=== PATIENT | female | born 1950 | race Caucasian/White ===

== ENCOUNTER 2020-02-11 09:02 | Outpatient (REF) | payer MEDICARE, SELFPAY | END 2020-02-11 09:03 | disposition home or self-care (01) | LOC: HO.HMGCLDS 09:02 | PROVIDERS: PCP Internal Medicine; Visit Provider Internal Medicine | DX: Z20.828 Contact with and (suspected) exposure to other viral communicable diseases (principal) | CPT/HCPCS: C9803; U0003 ==

== ENCOUNTER 2020-11-30 08:07 | Outpatient (REF) | payer MEDICARE, SELFPAY ==
[2020-11-30 11:20] LABS: Hematocrit 40.6 % (37-47); Hemoglobin 13.3 g/dl (12.0-16.0); Mean Corpuscular HGB Conc 32.8 g/dl (31.0-35.0); Mean Corpuscular Hemoglobin 31.1 pg (27.0-33.0); Mean Corpuscular Volume 94.9 fL (80-98); Mean Platelet Volume 10.6 fL (9.4-12.3); Platelet Count 242 X10*3/uL (160-400); Red Blood Count 4.28 X10*6/uL (4.20-5.50); Red Cell Distribution Width 12.7 % (11.0-16.0); White Blood Count 6.3 X10*3/uL (4.8-10.8)
[2020-11-30 11:27] LABS: Appearance Urine CLEAR; Color Urine YELLOW; Glucose Urine UA NEG (NEG); Leukocyte Esterase Urine NEG (NEG); Nitrite Urine NEG (NEG); PH 7.5 (5.0-8.0); Urine Blood NEG (NEG); Urine Ketones NEG (NEG); Urine Protein NEG (NEG-TRACE)
[2020-11-30 12:02] LABS: Alanine Aminotransferase 11 U/L (0-31); Albumin Level 4.4 g/dL (3.5-5.0); Alkaline Phosphatase 81 U/L (39-117); Anion Gap 11 (12-20); Aspartate Amino Transferase 16 U/L (5-31); Bilirubin Total 0.5 mg/dL (0.0-1.0); Blood Urea Nitrogen 14 mg/dL (9-16); Calcium 9.4 mg/dL (8.4-10.2); Carbon Dioxide 27 mmol/L (22-29); Chloride 107 mmol/L (96-108); Cholesterol 211 mg/dL; Estimated Glomerular Filt Rate > 60; Glucose Fasting 93 mg/dL (60-99); HDL Cholesterol 61 mg/dL; LDL Cholesterol Calculated 134 mg/dl; Potassium 4.2 mmol/L (3.3-5.1); Sodium 141 mmol/L (135-145); TSH reflex Free T4 1.16 uIU/mL (0.32-4.0); Total Protein 6.8 g/dL (6.5-8.0); Triglycerides 81 mg/dL
[2020-11-30 14:44] LABS: RBC Urine 0 /HPF (0); Squamous Epithelial Cell Urine TRACE /LPF; WBC Urine 0 /HPF (0-4)
== END 2020-11-30 08:08 | disposition home or self-care (01) ==
LOC: HO.HMGCLDS 08:07
PROVIDERS: PCP Internal Medicine; Visit Provider Internal Medicine
DX: Z00.00 Encounter for general adult medical examination without abnormal findings (principal)
CPT/HCPCS: 36415; 80053; 80061; 81001; 84443; 85027

== ENCOUNTER 2021-11-08 10:22 | Outpatient (REF) | payer MEDICARE, SELFPAY ==
[2021-11-08 11:44] LABS: Hematocrit 41.4 % (37.0-47.0); Hemoglobin 13.6 g/dl (12.0-16.0); Mean Corpuscular HGB Conc 32.9 g/dl (31.0-35.0); Mean Corpuscular Hemoglobin 31.2 pg (27.0-33.0); Mean Platelet Volume 10.8 fL (9.4-12.3); Platelet Count 242 X10*3/uL (160-400); Red Blood Count 4.36 X10*6/uL (4.20-5.50); Red Cell Distribution Width 12.9 % (11.0-16.0); White Blood Count 7.1 X10*3/uL (4.8-10.8)
[2021-11-08 12:10] LABS: Alanine Aminotransferase 11 U/L (0-31); Albumin Level 4.4 g/dL (3.5-5.0); Alkaline Phosphatase 79 U/L (39-117); Anion Gap 12 (12-20); Aspartate Amino Transferase 16 U/L (5-31); Bilirubin Total 0.2 mg/dL (0.0-1.0); Blood Urea Nitrogen 16 mg/dL (9-16); Calcium 9.2 mg/dL (8.4-10.2); Carbon Dioxide 28 mmol/L (22-29); Chloride 104 mmol/L (96-108); Cholesterol 227 mg/dL; Estimated Glomerular Filt Rate > 60; Glucose Fasting 91 mg/dL (60-99); HDL Cholesterol 58 mg/dL; LDL Cholesterol Calculated 152 mg/dl; Potassium 4.2 mmol/L (3.3-5.1); Sodium 140 mmol/L (135-145); Total Protein 7.2 g/dL (6.5-8.0); Triglycerides 89 mg/dL
[2021-11-08 12:23] LABS: TSH reflex Free T4 1.26 uIU/mL (0.32-4.0)
== END 2021-11-08 10:23 | disposition home or self-care (01) ==
LOC: HO.HMGCLDS 10:22
PROVIDERS: PCP Internal Medicine; Visit Provider Internal Medicine
DX: Z00.00 Encounter for general adult medical examination without abnormal findings (principal)
CPT/HCPCS: 36415; 80053; 80061; 84443; 85027

== ENCOUNTER 2021-12-27 13:00 | Outpatient (RCR) | payer MEDICARE, SELFPAY ==
--- NOTE | 2021-12-12 19:50 | MHC.PT.EP ---
[facility] [place] Office [place] Office [place] Office [address] [phone] F: [phone] F: [phone] F: [phone] F: [phone] Physical Therapy Plan of Care Date of Evaluation: Date of Surgery: Diagnosis: bakers cyst R knee Assessment: Pt is a 71 y/o female referred PT for eval and treat of R Dubose's cyst who presents with R knee dysfunction resulting in decreased tolerance and ability to perform ambulatory, standing and sitting tasks for duration as well as lifting objects of weight, rolling in bed, and performing LE dressing secondary to decreased hip and core strength, decreased trunk ROM as well as decreased posture, increased tissue tension, pelvic asymmetry and pain. Pt is deemed an appropriate candidate to receive skilled PT in order to address her physical limitations to improve her functional ability. Frequency and Duration: The patient will be seen 2 x/ wk x 4 wks. Short Term Goals: initiate HEP. No longer TTP of posterior R knee. Mcc Goals: I with HEP. Full R knee flexion achieved. R knee flexion MMT improved by at least 1/2 MMT grade; initial: 4/5 and painful. Pt will be able to negotiate 1 fl of stairs with at most a little bit of difficulty; initial: quite a bit of difficulty. Treatment Plan: Modalities to reduce pain, spasms and effusion. Manual therapy to restore motion and function. Therapeutic exercise to improve strength and flexibility. Neuromuscular re-education for posture and balance. Therapeutic activities to return to functional activities of daily living. Electronically signed by: Surjit Hogan PT Please sign and return to therapist. Thank you for your referral.
--- NOTE | 2022-01-02 14:05 | MHC.PT.DC ---
[facility] [place] Office [place] Office [place] Office [address] [place] [phone] F: [phone] F: [phone] F: [phone] F: [phone] Physical Therapy Discharge Report Diagnosis: bakers cyst R knee Date of Surgery: Date of Evaluation: 12/04/21 Date of Discharge: 01/02/22 Treatments to Date: 5 Cancellations to Date: No Shows to Date: Discharge Status: Achieved Goals Improved Function Independent with HEP Discharge Summary: Cancelled her last therapy appointment. her last attended therapy note: Pt reports DC NV likely and PT in agreement as she she is much improved of her Sx and is I with her home program. No adverse effects, No pain with activities, No longer TTP of posterior knee. Electronically signed by: Surjit Hogan PT. Please sign and return to therapist. Thank you for your referral.
== END 2022-01-02 14:05 | disposition home or self-care (01) ==
LOC: HO.PTCHIC 13:00
PROVIDERS: PCP Internal Medicine; Visit Provider Internal Medicine
DX: M71.20 Synovial cyst of popliteal space [Baker], unspecified knee (principal)
CPT/HCPCS: 97110; 97112; 97140; 97161

== ENCOUNTER 2022-02-28 08:03 | Outpatient (REF) | payer MEDICARE, SELFPAY ==
--- NOTE | ~2022-02-28 | XR_ITS ---
EXAMINATION: XR KNEE, BILATERAL XR KNEE, RIGHT CLINICAL INFORMATION: Pain in the right knee COMPARISON: None TECHNIQUE: AP standing view of both knees. Lateral and sunrise views of the right knee. FINDINGS: Right knee: No fracture or subluxation. Compartmental joint spaces are maintained. No joint effusion. The soft tissues appear unremarkable. Left knee: No fracture or malalignment. Mild medial compartment joint space narrowing with marginal osteophytes. XR/XR knee RT 2V IMPRESSION: 1. Normal appearance of the right knee. 2. Mild medial compartment degenerative change of the left knee.
--- NOTE | ~2022-02-28 | XR_ITS ---
EXAMINATION: XR KNEE, BILATERAL XR KNEE, RIGHT CLINICAL INFORMATION: Pain in the right knee COMPARISON: None TECHNIQUE: AP standing view of both knees. Lateral and sunrise views of the right knee. FINDINGS: Right knee: No fracture or subluxation. Compartmental joint spaces are maintained. No joint effusion. The soft tissues appear unremarkable. Left knee: No fracture or malalignment. Mild medial compartment joint space narrowing with marginal osteophytes. XR/XR knee standing BI IMPRESSION: 1. Normal appearance of the right knee. 2. Mild medial compartment degenerative change of the left knee.
== END 2022-02-28 08:04 | disposition home or self-care (01) ==
LOC: HO.HOSX 08:03
PROVIDERS: Visit Provider Physician Assistant
DX: M17.11 Unilateral primary osteoarthritis, right knee (principal); M71.21 Synovial cyst of popliteal space [Baker], right knee; M25.562 Pain in left knee
CPT/HCPCS: 20610; 73560; 73565; 99202; J1040

== ENCOUNTER → 2022-05-28 08:48 | Outpatient (BNVA) | payer MEDICARE, SELFPAY | PROVIDERS: PCP Internal Medicine; Visit Provider Physician Assistant | DX: M17.11 Unilateral primary osteoarthritis, right knee (principal); M71.20 Synovial cyst of popliteal space [Baker], unspecified knee | CPT/HCPCS: 20610; 99212; J1040 ==

== ENCOUNTER 2022-05-28 09:35 | Outpatient (REF) | payer MEDICARE, SELFPAY ==
[2022-05-28 12:14] LABS: Cholesterol 227 mg/dL; HDL Cholesterol 55 mg/dL; LDL Cholesterol Calculated 153 mg/dl; Triglycerides 95 mg/dL
== END 2022-05-28 09:36 | disposition home or self-care (01) ==
LOC: HO.10HDL 09:35
PROVIDERS: Visit Provider Internal Medicine
DX: E78.5 Hyperlipidemia, unspecified (principal)
CPT/HCPCS: 36415; 80061

== ENCOUNTER 2022-08-30 10:08 | Outpatient (REF) | payer MEDICARE, SELFPAY ==
--- NOTE | ~2022-08-30 | MM_ITS ---
EXAMINATION: BONE DENSITOMETRY CLINICAL INDICATION: Asymptomatic menopausal state. COMPARISON: None (current study represents initial baseline exam). TECHNIQUE: Using a Trusight DXA System (software version: 13.1) manufactured by [employer], dual-energy x-ray absorptiometry was performed of the lumbar spine and left hip. The images are of good technical quality. Summary results are attached. FINDINGS: AP SPINE L1-L2 (excluding L3 and L4): The data of L1-L4 has been changed to exclude the L3 and L4 vertebral bodies, because degenerative changes at these levels may cause overestimation of lumbar spine density. BMD 1.069 g/cm2, Z-score 0.4, T-score -0.8, normal. LEFT FEMUR, NECK: BMD 0.868 g/cm2, Z-score 0.2, T-score -1.2, osteopenia. LEFT FEMUR, TOTAL: BMD 0.989 g/cm2, Z-score 1.0, T-score -0.1, normal. IDENTIFIED RISK FACTORS: Early menopause, secondary osteoporosis, family history (parental hip fracture). HISTORY OF FRACTURE: None listed. MEDICATIONS: Calcium supplements or multivitamin, vitamin D. MM/XR DEXA axial skeleton IMPRESSION: 1. DIAGNOSIS: Osteopenia based on the lowest T-score value of -1.2 in the femoral neck applying World Health Organization criteria. 2. 10-YEAR FRACTURE RISK PREDICTION, FRAX: Major osteoporotic fracture (clinical spine, forearm, hip or shoulder) 15.1%. Hip fracture 4.1%. 3. Treatment Recommendations: NOF guidelines recommend consideration for treatment in postmenopausal women and men age 50 and older presenting with the following: -A hip or vertebral (clinical or morphometric) fracture. -T-score less than or equal to -2.5 at the femoral neck or spine after appropriate evaluation to exclude secondary causes. -Low bone mass at the hip or spine and a 10-year fracture probability by FRAX of greater than or equal to 3% for hip fracture or greater than or equal to 20% for major osteoporotic fracture based on the [place] adapted WHO algorithm. 4. Other Recommendations: All treatment decisions require clinical judgment and consideration of individual patient factors, including patient preferences, comorbidities, previous drug use, risk factors not captured in the FRAX model (e.g. frailty, falls, vitamin D deficiency, increased bone turnover, interval significant decline in bone density) and possible under or overestimation of fracture risk by FRAX. Additional medical evaluation for secondary cause of low bone mineral density may be appropriate. FUTURE SCAN RECOMMENDATION: People with diagnosed cases of osteoporosis or at high risk for fracture should have regular bone mineral density tests. For patients eligible for Medicare, routine testing is allowed once every 2 years. The testing frequency can be increased to one year for patients who have rapidly progressing disease, those who are receiving or discontinuing medical therapy to restore bone mass, or have additional risk factors.
== END 2022-08-30 10:09 | disposition home or self-care (01) ==
LOC: HO.MAMMO 10:08
PROVIDERS: PCP Internal Medicine; Visit Provider Internal Medicine
DX: Z13.820 Encounter for screening for osteoporosis (principal); Z78.0 Asymptomatic menopausal state
CPT/HCPCS: 77080

== ENCOUNTER → 2022-09-12 14:56 | Outpatient (BNVA) | payer MEDICARE, SELFPAY | PROVIDERS: PCP Internal Medicine; Visit Provider Physician Assistant | DX: M76.31 Iliotibial band syndrome, right leg (principal); M17.11 Unilateral primary osteoarthritis, right knee | CPT/HCPCS: 99202 ==

== ENCOUNTER 2022-10-04 11:00 | Outpatient (RCR) | payer MEDICARE, SELFPAY ==
--- NOTE | 2022-09-05 10:58 | MHC.PT.EP ---
[facility] [place] Office [place] Office [place] Office [address] [place] [address] [phone] F: [phone] F: [phone] F: [phone] F: [phone] Physical Therapy Plan of Care Date of Evaluation: Date of Surgery: Diagnosis: This is a 72 yo female presenting to skilled PT with a script for pain in the R knee. Assessment: This is a 72 yo female presenting to skilled PT with a script for pain in L shoulder. Patient presented to her PCP on 08/15/22 for a follow-up for persistent right lateral knee pain radiating to the calf area (going for 6 months). She was here for an eval and 5 visits in December of 2021 with improvements at CA but did not complete a full round of PT and has a hard time recalling HEP today. Pain now is located posterior knee still as well as lateral joint line (can radiate to ankle at night) and is describe as achy/dull. The pain is worse when the patient transfers sit<>stand and first steps of ambulation, ascending/descending the stairs, getting off of low surfaces and with sleeping. Patient reports that she has been seeing [facility] and has had 2 cortisone injections (last one was in may). She had relief for a few months with the first injection but no affect after the 2nd. Patient has another follow up appointment with Orthopedics in the end of August. Patient denies knee swelling or injury, clicking, locking, grinding or giving way. Assessment reveals pain that ranges from a 4-7/10. Patient demos decreased lumbar and knee ROM, strength of quads, gluts and back, she is TTP at posterior knee, demos valgus deformity and impaired gait pattern. Based on functional limitations, impaired QOL and pain tolerance patient is a good candidate for skilled PT 2x/wk for 4 wks. Frequency and Duration: The patient will be seen 2x/wk for 4wks Short Term Goals: I in HEP in 2 wks Improve knee flexion by 10 degs actively in 2 wks Demo proper quad set without cues from external sources in 2wks [employer] Operator Goals: Demo equal knee ROM actively in 4wks Tolerate step over step on stairs with single rail and no pain in 4wks Improve subjective function by at least 50% in 4wks Improve LEFs by 10 points in 4wks Demo proper squat posture without cues in 4wks Treatment Plan: Modalities to reduce pain, spasms and effusion. Manual therapy to restore motion and function. Therapeutic exercise to improve strength and flexibility. Neuromuscular re-education for posture and balance. Therapeutic activities to return to functional activities of daily living. Electronically signed by: Ayaka Izaguirre PT Please sign and return to therapist. Thank you for your referral.
--- NOTE | 2022-10-16 10:30 | MHC.PT.DC ---
[facility] [place] Office [place] Office [place] Office [address] [phone] F: [phone] F: [phone] F: [phone] F: [phone] Physical Therapy Discharge Report Diagnosis: This is a 72 yo female presenting to skilled PT with a script for pain in the R knee. Date of Surgery: Date of Evaluation: 09/05/22 Date of Discharge: 10/16/22 Treatments to Date: 3 Cancellations to Date: 0 No Shows to Date: 0 Discharge Status: Achieved Goals Improved Function Independent with HEP Patient Elected to Stop Discharge Summary: Patient came to eval and 2 follow up visits. She called and cancelled remaining visits, LM stating that she felt better and was ready for DC. Electronically signed by: Ayaka Izaguirre PT Please sign and return to therapist. Thank you for your referral.
== END 2022-10-16 10:30 | disposition home or self-care (01) ==
LOC: HO.PTCHIC 11:00
PROVIDERS: PCP Internal Medicine; Visit Provider Internal Medicine
DX: M17.11 Unilateral primary osteoarthritis, right knee (principal)
CPT/HCPCS: 97110; 97140; 97162

== ENCOUNTER 2022-11-20 08:47 | Outpatient (REF) | payer MEDICARE, SELFPAY ==
[2022-11-20 10:23] LABS: MANUAL DIFF FLAG NO
[2022-11-20 10:26] LABS: Basophils Absolute Auto 0.1 X10*3/uL (0.0-0.2); Basophils Percent Auto 0.8 % (0-2); Eosinophils Absolute Auto 0.2 X10*3/uL (0.0-0.4); Eosinophils Percent Auto 3.1 % (0-4); Hematocrit 41.3 % (37.0-47.0); Hemoglobin 13.6 g/dl (12.0-16.0); Imm Gran Abs Auto 0.03 X10*3/uL (0.00-0.03); Imm Gran Pct Auto 0.5 % (0.0-0.4); Lymphocytes Absolute Auto 2.3 X10*3/uL (1.2-4.9); Lymphocytes Percent Auto 35.6 % (20-40); Mean Corpuscular HGB Conc 32.9 g/dl (31.0-35.0); Mean Corpuscular Hemoglobin 31.1 pg (27.0-33.0); Mean Corpuscular Volume 94.3 fL (80.0-98.0); Mean Platelet Volume 10.2 fL (9.4-12.3); Monocytes Absolute Auto 0.5 X10*3/uL (0.1-1.2); Monocytes Percent Auto 8.3 % (2-11); Neutrophils Absolute Auto 3.3 x10*3/uL (2.0-8.3); Neutrophils Percent Auto 51.7 % (45-73); Platelet Count 231 X10*3/uL (160-400); Red Blood Count 4.38 X10*6/uL (4.20-5.50); Red Cell Distribution Width 12.8 % (11.0-16.0); White Blood Count 6.4 X10*3/uL (4.8-10.8)
[2022-11-20 10:44] LABS: Alanine Aminotransferase 9 U/L (0-31); Albumin Level 4.4 g/dL (3.5-5.0); Alkaline Phosphatase 73 U/L (39-117); Anion Gap 10 (12-20); Aspartate Amino Transferase 16 U/L (5-31); Bilirubin Total 0.5 mg/dL (0.0-1.0); Blood Urea Nitrogen 18 mg/dL (9-16); Calcium 9.7 mg/dL (8.4-10.2); Carbon Dioxide 29 mmol/L (22-29); Chloride 104 mmol/L (96-108); Cholesterol 223 mg/dL (<200); Estimated Glomerular Filt Rate 59; Glucose Fasting 99 mg/dL (60-99); HDL Cholesterol 54 mg/dL (>40); LDL Cholesterol Calculated 151 mg/dL (<100); Potassium 4.2 mmol/L (3.3-5.1); Sodium 139 mmol/L (135-145); Total Protein 7.3 g/dL (6.5-8.0); Triglycerides 91 mg/dL (<150)
[2022-11-20 11:00] LABS: TSH reflex Free T4 1.41 uIU/mL (0.32-4.0); Vitamin D 25-OH Total 69.5 ng/mL (>30)
== END 2022-11-20 08:48 | disposition home or self-care (01) ==
LOC: HO.10HDL 08:47
PROVIDERS: Visit Provider Internal Medicine
DX: Z00.00 Encounter for general adult medical examination without abnormal findings (principal); E55.9 Vitamin D deficiency, unspecified; E78.5 Hyperlipidemia, unspecified
CPT/HCPCS: 36415; 80053; 80061; 82306; 84443; 85025

== ENCOUNTER 2022-11-30 07:44 | Outpatient (AMB) | payer MEDICARE, SELFPAY ==
[2022-11-30 07:52] VITALS: BP 122/70; PULSE 70; O2SAT 95; BMI 27.4
--- NOTE | 2022-11-30 07:52 | A.OFFPC_ITS ---
Vital Signs 11/30/22 07:52 Height 5 ft 7 in Weight 175 lb BMI 27.4 BP 122/70 Blood Pressure Location Rt brachial Position Sitting Pulse 70 Pulse Source Pulse Oximeter Pulse Oximetry (%) 95 Intake Visit Reasons: annual PE Intake Note: pt is here for annual exam [employer] Continuous Process Required: No Allergies No Known Allergies Allergy (Verified 11/30/22 07:52) Medication List - Last Reconciled 11/30/22 by Caroline Alaln MD bupropion HCl 300 mg PO DAILY pravastatin 10 mg PO DAILY Tobacco use date assessed: 08/15/22 Last assessed Fall Risk: 11/30/22 Dental Screening Dental Screen Date: 11/30/22 Did you have a dental visit in the last 12 months?: Yes Did you have a dental problem in the last 6 months where you did not have access to dental care?: No Was dental information given to patient?: Patient has dentist HPI annual PE HPI Details Pt presents for PE. Patient complains of persistent right knee pain and stiffness worse when walking. Patient tried physical therapy and had to cortisone injection without significant improvement. [facility] Medical History (Updated 11/30/22 @ 08:51 by Caroline Allan MD) Colon cancer screening Normal Pap smear Annual physical exam Family History Father No problems noted. Mother Stroke Social History Housing: House Patient Tobacco Use Status: Current everyday Tobacco user Cigarettes Per Day: 4 e-Cigarette/Vaping Use: Never Used Current occupational status: retired Cognitive needs: No Hearing needs: No Vision needs: Yes Questionnaire PHQ-9 Over the last 2 weeks, how often have you been bothered by any of the following problems? 1. Little interest or pleasure in doing things: not at all 2. Feeling down, depressed, or hopeless: not at all 3. Trouble falling or staying asleep, or sleeping too much: not at all 4. Feeling tired or having little energy: several days 5. Poor appetite or overeating: not at all 6. Feeling bad about yourself - or that you are a failure or have let yourself or your family down: not at all 7. Trouble concentrating on things, such as reading the newspaper or watching television: not at all 8. Moving or speaking so slowly that other people could have noticed. Or the opposite - being so fidgety or restless that you have been moving around a lot more than usual: not at all 9. Thoughts that you would be better off or of hurting yourself in some way: not at all Total score: 1 Depression Screening Interpretation: Negative 62909 - PHQ-9 Billing: Yes Source: Developed by Drs. Damir Luna, Debra Valdes, Lexx Alanis and colleagues, with an educational aide from [employer]. Thrive Questionnaire Date Thrive assessed: 11/30/22 I am a: Patient What is your living situation today?: I have a steady place to live Within the past 12 months, did the food you bought not last and you didn't have the money to get more?: Never true Within the past 12 months, did you worry whether your food would run out before you got money to buy more?: Never true Do you have trouble paying for medicines?: No Do you have trouble getting transportation to medical appointments?: No Do you have trouble paying your heating and electricity bill?: No Do you have trouble taking care of your child, family member or friend?: No Do you have trouble with day-to-day activities such as bathing, preparing meals, shopping, managing finances, etc.?: No Are you currently unemployed and looking for a job?: No Are you interested in more education?: No Please select the resources that you would like help with: None Currently or been in a relationship where the following occur: no concerns reported AUDIT C Alcohol Use Questionnaire (AUDIT-C) 1. How often do you have a drink containing alcohol?: Monthly or less 2. How many drinks containing alcohol do you have on a typical day when you are drinking?: 1 or 2 3. How often do you have six or more drinks on one occasion?: Never Total Score: 1 BRIGITTE-7 AMB Questionnaire BRIGITTE-7 Date BRIGITTE - 7 assessed: 11/30/22 Feeling nervous, anxious, or on edge: 0 = Not at all Not being able to stop or control worryin = Several days Worrying too much about different things: 1 = Several days Trouble relaxin = Not at all Being so restless that it is hard to sit still: 0 = Not at all Becoming easily annoyed or irritable: 0 = Not at all Feeling afraid as if something awful might happen: 0 = Not at all Total BRIGITTE-7 score (0-4 normal; 5-9 mild; 10-14 moderate; 15-21 severe): 2 Source: Developed by Drs. Damir Luna, Debra Valdes, Lexx Alanis and colleagues, with an educational aide from [employer]. BRIGITTE-7 Assessment Billing BRIGITTE-7 Assessment Tool: BRIGITTE-7 Assessment 33437 Review of Systems Const All systems reviewed & are unremarkable except as noted in HPI and below Reports no additional complaints Eyes Reports no additional complaints ENT Reports no additional complaints Card Reports no additional complaints Resp Reports no additional complaints GI Reports no additional complaints Reports no additional complaints Physical exam (Primary Care) Vital Signs: Last Vital Signs Pulse 70 11/30/22 07:52 BP 122/70 11/30/22 07:52 Pulse Ox 95 11/30/22 07:52 BMI result Body Mass Index 27.4 Tobacco/Smoking Status: Tobacco use Status Tobacco use date assessed 08/15/22 11/30/22 07:53 Patient Tobacco Use Status Current everyday Tobacco 11/30/22 07:53 e-Cigarette/Vaping Use Never Used 11/30/22 07:53 PHQ-9: PHQ-9 Score PHQ-9: Total score 1 11/30/22 08:28 Depression Screening Interpretation: Negative Thrive Assessment: Date of Thrive Assessment Date Thrive assessed 11/30/22 11/30/22 07:58 Currently or been in a relationship where the following occur: no concerns reported Const General: no acute distress HENMT Head: Yes normal to inspection Ears: hearing grossly normal bilaterally Face and sinus: Yes normal facial exam Mouth: Normal oral and palatal mucosa present Throat: Yes posterior oropharynx normal Eyes General: appearance normal, both eyes and all related structures Neck Neck: Yes no lymphadenopathy and Yes supple Resp Effort & Inspection: normal respiratory effort Auscultation: clear to auscultation bilaterally Cardio Rhythm: regular rhythm Heart sounds: S1 normal heart sound present and S2 normal heart sound present GI Inspection: Yes normal to inspection Palpation (GI): Soft to palpation Percussion: Yes normal to percussion Auscultation: normal bowel sounds Extrem Other: Decreased range of motion and the right knee, lateral aspect tenderness, no soft tissue swelling erythema or warmth General: Yes no clubbing, cyanosis or edema Assessment and Plan Assessment & Plan (1) Hyperlipemia: Code(s): E78.5 - Hyperlipidemia, unspecified Plan: start Pravastatin 10 mg and continue low-cholesterol diet check lipid profile in 2 months and follow up afterward (2) Annual physical exam: Comment: Mammogram at [facility] annually. Patient declined colonoscopy. Will check Cologuard Code(s): Z00.00 - Encounter for general adult medical examination without abnormal findings Plan: Well-balanced diet regular physical activity discussed with the patient (3) Right knee meniscal tear: Code(s): S83.206A - Unspecified tear of unspecified meniscus, current injury, right knee, initial encounter Plan: Obtain MRI of right knee to evaluate for meniscus tear (4) Dysplastic nevi: Code(s): D23.9 - Other benign neoplasm of skin, unspecified Plan: Referred to dermatology Orders: Orders Comprehensive [place]. Panel Fast 2 Months E78.5 - Hyperlipidemia, unspecified, Z00.00 - Encounter for general adult medical examination without abnormal findings Lipid Panel 2 Months E78.5 - Hyperlipidemia, unspecified, Z00.00 - Encounter for general adult medical examination without abnormal findings MR knee RT wo con Today S83.206A - Unspecified tear of unspecified meniscus, current injury, right knee, initial encounter Referrals Cologuard Test Z12.11 - Encounter for screening for malignant neoplasm of colon, Z12.12 - Encounter for screening for malignant neoplasm of rectum Dermatology Referral D23.9 - Other benign neoplasm of skin, unspecified Medications: New pravastatin 10 mg PO DAILY 90 tabs 0RF pravastatin 10 mg PO DAILY 90 tabs 0RF Refilled bupropion HCl 300 mg PO DAILY 90 tabs 3RF Coding Level of Care Code Est Pt Prev Care >65y(64899) Diagnoses Hyperlipemia E78.5 Annual physical exam Z00.00 Right knee meniscal tear S83.206A Dysplastic nevi D23.9 Additional Codes BRIGITTE-7 Assessment Billing - BRIGITTE-7 Assessment Tool: BRIGITTE-7 Assessment [id number] ([id number])
== END 2022-11-30 08:52 | disposition home or self-care (01) ==
PROVIDERS: Visit Provider Internal Medicine
DX: E78.5 Hyperlipidemia, unspecified (principal); Z00.00 Encounter for general adult medical examination without abnormal findings; S83.206A Unspecified tear of unspecified meniscus, current injury, right knee, initial encounter; D23.9 Other benign neoplasm of skin, unspecified
CPT/HCPCS: 99397

== ENCOUNTER 2023-01-29 08:19 | Outpatient (REF) | payer MEDICARE, SELFPAY ==
[2023-01-29 11:07] LABS: Alanine Aminotransferase 12 U/L (0-31); Albumin Level 4.2 g/dL (3.5-5.0); Alkaline Phosphatase 77 U/L (39-117); Anion Gap 11 (12-20); Aspartate Amino Transferase 20 U/L (5-31); Bilirubin Total 0.3 mg/dL (0.0-1.0); Blood Urea Nitrogen 14 mg/dL (9-16); Calcium 9.3 mg/dL (8.4-10.2); Carbon Dioxide 28 mmol/L (22-29); Chloride 106 mmol/L (96-108); Cholesterol 186 mg/dL (<200); Estimated Glomerular Filt Rate > 60; Glucose Fasting 94 mg/dL (60-99); HDL Cholesterol 51 mg/dL (>40); LDL Cholesterol Calculated 121 mg/dL (<100); Potassium 4.2 mmol/L (3.3-5.1); Sodium 141 mmol/L (135-145); Total Protein 6.9 g/dL (6.5-8.0); Triglycerides 70 mg/dL (<150)
== END 2023-01-29 08:20 | disposition home or self-care (01) ==
LOC: HO.10HDL 08:19
PROVIDERS: Visit Provider Internal Medicine
DX: Z00.00 Encounter for general adult medical examination without abnormal findings (principal); E78.5 Hyperlipidemia, unspecified
CPT/HCPCS: 36415; 80053; 80061

== ENCOUNTER 2023-02-06 08:33 | Outpatient (AMB) | payer MEDICARE, SELFPAY ==
--- NOTE | 2023-02-06 08:35 | MHC.PC.OV ---
Vital Signs 02/06/23 08:38 Height 5 ft 7 in Weight 176 lb BMI 27.6 BP 112/76 Blood Pressure Location Lt brachial Position Sitting Pulse 80 Pulse Source Pulse Oximeter Pulse Oximetry (%) 98 Oxygen Delivery Method Room Air Intake Visit Reasons: 2 Month Follow Up (Hyperlipidemia) Allergies No Known Allergies Allergy (Verified 02/06/23 08:38) Medication List - Last Reconciled 02/06/23 by Caroline Allan MD bupropion HCl 300 mg PO DAILY pravastatin 10 mg PO DAILY Tobacco use date assessed: 08/15/22 Fall risk assessment: No Falls in past year Last assessed Fall Risk: 02/06/23 HPI 2 Month Follow Up (Hyperlipidemia) HPI Details Pt presents for hyperlipid and anxiety. Pt c/o postnasal drip on and off for 2 weeks. Patient denies fever chills of facial pain nasal congestion. [facility] Medical History (Updated 02/06/23 @ 09:21 by Caroline Allan MD) Colon cancer screening Normal Pap smear Annual physical exam Family History Father No problems noted. Mother Stroke Social History Housing: House Patient Tobacco Use Status: Current everyday Tobacco user Cigarettes Per Day: 4 e-Cigarette/Vaping Use: Never Used Current occupational status: retired Cognitive needs: No Hearing needs: No Vision needs: Yes Questionnaire Thrive Questionnaire Date Thrive assessed: 11/30/22 BRIGITTE-7 AMB Questionnaire BRIGITTE-7 Date BRIGITTE - 7 assessed: 11/30/22 Source: Developed by Drs. Damir Luna, Debra Valdes, Lexx Alanis and colleagues, with an educational aide from [employer]. Review of Systems Const All systems reviewed & are unremarkable except as noted in HPI and below Reports no additional complaints Eyes Reports no additional complaints ENT Reports no additional complaints Card Reports no additional complaints Resp Reports no additional complaints GI Reports no additional complaints Physical exam (Primary Care) Vital Signs: Last Vital Signs Pulse 80 02/06/23 08:38 BP 112/76 02/06/23 08:38 Pulse Ox 98 02/06/23 08:38 Oxygen Delivery Method Room Air 02/06/23 08:38 BMI result Body Mass Index 27.6 Tobacco/Smoking Status: Tobacco use Status Tobacco use date assessed 08/15/22 02/06/23 08:37 Patient Tobacco Use Status Current everyday Tobacco 02/06/23 08:37 e-Cigarette/Vaping Use Never Used 02/06/23 08:37 Thrive Assessment: Date of Thrive Assessment Date Thrive assessed 11/30/22 02/06/23 08:37 Const General: no acute distress HENMT Head: Yes normal to inspection Ears: hearing grossly normal bilaterally Face and sinus: Yes normal facial exam Mouth: Normal oral and palatal mucosa present Throat: Yes postnasal drainage Eyes General: appearance normal, both eyes and all related structures Neck Neck: Yes no lymphadenopathy and Yes supple Resp Effort & Inspection: normal respiratory effort Auscultation: clear to auscultation bilaterally Cardio Rhythm: regular rhythm Heart sounds: S1 normal heart sound present and S2 normal heart sound present GI Inspection: Yes normal to inspection Assessment and Plan Assessment & Plan (1) Hyperlipemia: Code(s): E78.5 - Hyperlipidemia, unspecified Plan: Continue pravastatin follow-up in 6 months with a fasting labs before (2) Postnasal drip: Code(s): R09.82 - Postnasal drip Plan: Patient will try Flonase nasal spray (3) Anxiety: Code(s): F41.9 - Anxiety disorder, unspecified Plan: Continue bupropion Orders: Orders Comprehensive [place]. Panel Fast 6 Months E78.5 - Hyperlipidemia, unspecified, F41.9 - Anxiety disorder, unspecified, R09.82 - Postnasal drip Complete Blood Count Auto Diff 6 Months E78.5 - Hyperlipidemia, unspecified, F41.9 - Anxiety disorder, unspecified, R09.82 - Postnasal drip Lipid Panel 6 Months E78.5 - Hyperlipidemia, unspecified, F41.9 - Anxiety disorder, unspecified, R09.82 - Postnasal drip Medications: Refilled pravastatin 10 mg PO DAILY 90 tabs 3RF Coding Level of Care Code Est Pt Level 4 (94015) Diagnoses Hyperlipemia E78.5 Postnasal drip R09.82 Anxiety F41.9
[2023-02-06 08:38] VITALS: BP 112/76; PULSE 80; O2SAT 98; BMI 27.6
== END 2023-02-06 09:26 | disposition home or self-care (01) ==
PROVIDERS: PCP Internal Medicine; Visit Provider Internal Medicine
DX: E78.5 Hyperlipidemia, unspecified (principal); R09.82 Postnasal drip; F41.9 Anxiety disorder, unspecified
CPT/HCPCS: 99214

== ENCOUNTER 2023-02-26 10:47 | Outpatient (REF) | payer MEDICARE, SELFPAY ==
--- NOTE | ~2023-02-26 | XR_ITS ---
EXAMINATION: XR CHEST 2 VIEW CLINICAL INFORMATION: Cough COMPARISON: None TECHNIQUE: PA and lateral views of the chest obtained. FINDINGS: The lungs are clear. There are no pleural effusions. The cardiomediastinal silhouette is normal. XR/XR chest 2V IMPRESSION: No acute cardiopulmonary disease.
== END 2023-02-26 10:48 | disposition home or self-care (01) ==
LOC: HO.HMGCX 10:47
PROVIDERS: PCP Internal Medicine; Visit Provider Internal Medicine
DX: R05.9 Cough, unspecified (principal)
CPT/HCPCS: 71046

== ENCOUNTER 2023-07-17 10:14 | Outpatient (REF) | payer MEDICARE, SELFPAY ==
--- NOTE | ~2023-07-17 | XR_ITS ---
EXAMINATION: XR KNEE, RIGHT CLINICAL INFORMATION: Unilateral primary osteoarthritis right knee. COMPARISON: 02/28/2022. TECHNIQUE: AP standing view of bilateral knees. [place] and lateral views of the right knee. of the right knee. FINDINGS: LEFT KNEE: Single AP standing view of the left knee demonstrates [id number] narrowing of the medial compartment with small medial marginal osteophytes. RIGHT KNEE: Moderate joint effusion. Tiny tricompartmental osteophytes. Mild narrowing of the lateral compartment. Scattered soft tissue calcifications are likely vascular. XR/XR knee RT 3V IMPRESSION: Mild degenerative changes in the bilateral knees.
== END 2023-07-17 10:15 | disposition home or self-care (01) ==
LOC: HO.HOSX 10:14
PROVIDERS: Visit Provider Physician Assistant
DX: M17.11 Unilateral primary osteoarthritis, right knee (principal)
CPT/HCPCS: 20610; 73562; 99212; J1010

== ENCOUNTER 2023-07-17 11:09 | Outpatient (AMB) | payer MEDICARE, SELFPAY ==
--- NOTE | 2023-07-17 11:35 | MHC.OFFVIS ---
Vital Signs 07/17/23 11:37 Height 5 ft 7 in Weight 176 lb BMI 27.6 Intake Visit Reasons: ov- RT knee pain/ OA Intake Note: Zenia a 72 year old female who presents today for a follow up of right knee pain, last injection 05/29/23. Patient reports that PT provided her with little relief. States she continues to do at home exercises that consists of walking and yoga. States her most discomfort comes with flexion and extension. She would like to repeat injection today. Allergies No Known Allergies Allergy (Verified 07/17/23 11:40) HPI HPI ov- RT knee pain/ OA: Details: 73-year-old female who returns to the office today for a follow-up of right knee pain. She states she has improvement in her pain however she does experiences discomfort in her knee which comes with flexion and extension. She had also attended physical therapy with mild relief. She continues to work on home exercises which consists of walking and yoga. She had her last injection on 05/29/23 which provided her relief. [facility] Medical History (Updated 02/25/23 @ 15:52 by Caroline Allan MD) Colon cancer screening Normal Pap smear Annual physical exam Family History Father No problems noted. Mother Stroke Social History Housing: House Patient Tobacco Use Status: Current everyday Tobacco user Cigarettes Per Day: 4 e-Cigarette/Vaping Use: Never Used Current occupational status: retired Cognitive needs: No Hearing needs: No Vision needs: Yes Review of Systems Const All systems reviewed & are unremarkable except as noted in HPI and below Physical Exam Vital Signs: BMI result Body Mass Index 27.6 Const General: cooperative and no acute distress Orientation/consciousness: patient oriented x3 Resp Effort & Inspection: normal respiratory effort and able to speak in complete sentences Cardio Peripheral pulses: Peripheral pulses 2+ throughout Neuro General: patient oriented x3 Extrem Other: Right knee: Skin intact, no erythema or joint effusion. No specific Tenderness along the medial or lateral joint line. ROM full with crepitus. Negative steinmans. No ligamentous laxity. NVI. Office Procedures Joint Injection/Drain Joint Injection/Drain Primary Site: right knee Prep: site was prepped using aseptic technique, ethochloride spray was applied and injection warnings given Injected: 80 mg of, DepoMedrol, with 8 mL of, 1% plain lidocaine and in the joint Approach Used: anterolateral Procedure: The patient tolerated the procedure well and there was some relief with the local anesthesia Coding 53931 - Glenohumeral/Tronchanteric Bursa/Intraarticular Procedure code (CPT) selection complete Assessment & Plan Assessment & Plan (1) Osteoarthritis of right knee: Code(s): M17.11 - Unilateral primary osteoarthritis, right knee Category: Medical Plan We discussed options today which include steroid injection. They did consent to move forward with the right knee injection, which was tolerated well. I recommended rest, ice and elevation and OTC anti-inflammatories PRN for discomfort. If symptoms persist or worsens over the next 6-8 weeks, patient will contact the office, otherwise follow-up as needed. Orders: Orders XR knee RT 3V Today M17.11 - Unilateral primary osteoarthritis, right knee Patient Instructions: Scribed for Shashi Shook PA-C, by Nick Griggs director of medical staff services, on 07/17/2023 at 11:30 AM BAILEY. Shashi Oliver PA-C, have personally reviewed and agree with the information entered by the scribe. Coding Level of Care Code Est Pt Level 3 (90089) Diagnoses Osteoarthritis of right knee M17.11 CPT Codes Coding - Joint 7: 56803 - Glenohumeral/Tronchanteric Bursa/Intraarticular ([id number])
[2023-07-17 11:37] VITALS: BMI 27.6
== END 2023-07-17 11:53 | disposition home or self-care (01) ==
PROVIDERS: PCP Internal Medicine; Visit Provider Physician Assistant
DX: M17.11 Unilateral primary osteoarthritis, right knee (principal)
CPT/HCPCS: 20610; 99213

== ENCOUNTER 2023-07-31 08:31 | Outpatient (REF) | payer MEDICARE, SELFPAY ==
[2023-07-31 14:17] LABS: MANUAL DIFF FLAG NO
[2023-07-31 14:29] LABS: Basophils Absolute Auto 0.1 X10*3/uL (0.0-0.2); Eosinophils Absolute Auto 0.1 X10*3/uL (0.0-0.4); Hematocrit 42.7 % (37.0-47.0); Hemoglobin 14.1 g/dl (12.0-16.0); Imm Gran Abs Auto 0.03 X10*3/uL (0.00-0.03); Imm Gran Pct Auto 0.3 % (0.0-0.4); Lymphocytes Absolute Auto 2.3 X10*3/uL (1.2-4.9); Mean Corpuscular Hemoglobin 31.5 pg (27.0-33.0); Mean Corpuscular Volume 95.5 fL (80.0-98.0); Mean Platelet Volume 10.8 fL (9.4-12.3); Monocytes Absolute Auto 0.5 X10*3/uL (0.1-1.2); Monocytes Percent Auto 5.5 % (2-11); Neutrophils Absolute Auto 6.4 x10*3/uL (2.0-8.3); Neutrophils Percent Auto 68.2 % (45-73); Platelet Count 237 X10*3/uL (160-400); Red Blood Count 4.47 X10*6/uL (4.20-5.50); Red Cell Distribution Width 13.2 % (11.0-16.0); White Blood Count 9.4 X10*3/uL (4.8-10.8)
[2023-07-31 15:08] LABS: Alanine Aminotransferase 12 U/L (0-31); Albumin Level 4.6 g/dL (3.5-5.0); Alkaline Phosphatase 73 U/L (39-117); Anion Gap 16 (12-20); Aspartate Amino Transferase 19 U/L (5-31); Bilirubin Total 0.6 mg/dL (0.0-1.0); Blood Urea Nitrogen 19 mg/dL (9-16); Calcium 10.3 mg/dL (8.4-10.2); Carbon Dioxide 25 mmol/L (22-29); Chloride 103 mmol/L (96-108); Cholesterol 193 mg/dL (<200); Estimated Glomerular Filt Rate 55; Glucose Fasting 92 mg/dL (60-99); HDL Cholesterol 66 mg/dL (>40); LDL Cholesterol Calculated 113 mg/dL (<100); Potassium 3.9 mmol/L (3.3-5.1); Sodium 140 mmol/L (135-145); Total Protein 7.7 g/dL (6.5-8.0); Triglycerides 72 mg/dL (<150)
== END 2023-07-31 08:32 | disposition home or self-care (01) ==
LOC: HO.CHCLDS 08:31
PROVIDERS: Visit Provider Internal Medicine
DX: F41.9 Anxiety disorder, unspecified (principal); E78.5 Hyperlipidemia, unspecified; R09.82 Postnasal drip
CPT/HCPCS: 36415; 80053; 80061; 85025

== ENCOUNTER 2023-11-28 11:23 | Outpatient (REF) | payer MEDICARE, SELFPAY ==
[2023-11-28 13:55] LABS: Alanine Aminotransferase 13 U/L (0-31); Albumin Level 4.3 g/dL (3.5-5.0); Alkaline Phosphatase 75 U/L (39-117); Anion Gap 14 (12-20); Aspartate Amino Transferase 17 U/L (5-31); Bilirubin Total 0.3 mg/dL (0.0-1.0); Blood Urea Nitrogen 15 mg/dL (9-16); Calcium 9.8 mg/dL (8.4-10.2); Carbon Dioxide 26 mmol/L (22-29); Chloride 104 mmol/L (96-108); Cholesterol 188 mg/dL (<200); Estimated Glomerular Filt Rate > 60; Glucose Fasting 86 mg/dL (60-99); HDL Cholesterol 54 mg/dL (>40); LDL Cholesterol Calculated 114 mg/dL (<100); Potassium 4.1 mmol/L (3.3-5.1); Sodium 140 mmol/L (135-145); Total Protein 7.1 g/dL (6.5-8.0); Triglycerides 103 mg/dL (<150)
== END 2023-11-28 11:24 | disposition home or self-care (01) ==
LOC: HO.HMGCLDS 11:23
PROVIDERS: PCP Internal Medicine; Visit Provider Internal Medicine
DX: E78.5 Hyperlipidemia, unspecified (principal)
CPT/HCPCS: 36415; 80053; 80061

== ENCOUNTER 2023-12-09 08:50 | Outpatient (AMB) | payer MEDICARE, SELFPAY ==
[2023-12-09 09:01] VITALS: BP 124/74; PULSE 57; O2SAT 97; BMI 27.2
--- NOTE | 2023-12-09 09:01 | MHC.PC.OV ---
Vital Signs 12/09/23 09:01 Height 5 ft 7 in Weight 174 lb BMI 27.2 BP 124/74 Blood Pressure Location Lt brachial Position Sitting Pulse 57 Pulse Source Pulse Oximeter Pulse Oximetry (%) 97 Oxygen Delivery Method Room Air Intake Visit Reasons: PE Intake Note: Pt is here today for PE. Allergies No Known Allergies Allergy (Verified 12/09/23 09:14) Medication List - Last Reconciled 12/09/23 by Caroline Allan MD bupropion HCl XL 300 mg PO DAILY pravastatin 10 mg PO DAILY Tobacco use date assessed: 12/09/23 Fall risk assessment: No Falls in past year Last assessed Fall Risk: 12/09/23 Dental Screening Dental Screen Date: 12/09/23 Did you have a dental visit in the last 12 months?: Yes Did you have a dental problem in the last 6 months where you did not have access to dental care?: No Was dental information given to patient?: Patient has dentist HPI PE HPI Details Pt presents for PE. Pt c/o persistent dry cough, worse after laying down since February. Patient denies GERD symptoms by usually eats late snack. She denies a fever chills night sweats pleurisy sputum production weight loss. She had a negative chest x-ray. Patient continues to smoke a half a pack a day [facility] Medical History Colon cancer screening Normal Pap smear Annual physical exam Surgical History Hx of section Family History (Reviewed 12/09/23 @ 09:16 by Zandra Callahan [facility]) Father No problems noted. Mother Stroke Social History Housing: House Patient Tobacco Use Status: Current everyday Tobacco user Tobacco use type: Cigarette Cigarettes Per Day: 4 e-Cigarette/Vaping Use: Never Used service: No Current occupational status: retired Cognitive needs: No Hearing needs: No Vision needs: Yes Questionnaire PHQ-9 Over the last 2 weeks, how often have you been bothered by any of the following problems? 1. Little interest or pleasure in doing things: not at all 2. Feeling down, depressed, or hopeless: not at all 3. Trouble falling or staying asleep, or sleeping too much: not at all 4. Feeling tired or having little energy: not at all 5. Poor appetite or overeating: not at all 6. Feeling bad about yourself - or that you are a failure or have let yourself or your family down: not at all 7. Trouble concentrating on things, such as reading the newspaper or watching television: not at all 8. Moving or speaking so slowly that other people could have noticed. Or the opposite - being so fidgety or restless that you have been moving around a lot more than usual: not at all 9. Thoughts that you would be better off or of hurting yourself in some way: not at all Total score: 0 Depression Screening Interpretation: Negative Depression Screening Done: Yes 49408 - PHQ-9 Billing: Yes Source: Developed by Drs. Damir Luna, Debra Valdes, Lexx Alanis and colleagues, with an educational aide from [employer]. Thrive Questionnaire Date Thrive assessed: 12/09/23 I am a: Patient What is your living situation today?: I have a steady place to live Within the past 12 months, did the food you bought not last and you didn't have the money to get more?: I choose not to answer this question Within the past 12 months, did you worry whether your food would run out before you got money to buy more?: I choose not to answer this question Do you have trouble paying for medicines?: No Do you have trouble getting transportation to medical appointments?: No Do you have trouble paying your heating and electricity bill?: I choose not to answer this question Do you have trouble taking care of your child, family member or friend?: No Do you have trouble with day-to-day activities such as bathing, preparing meals, shopping, managing finances, etc.?: No Are you interested in more education?: No Please select the resources that you would like help with: None Currently or been in a relationship where the following occur: No concerns reported THRIVE Score: 0 AUDIT C Alcohol Use Questionnaire (AUDIT-C) 1. How often do you have a drink containing alcohol?: Monthly or less 2. How many drinks containing alcohol do you have on a typical day when you are drinking?: 1 or 2 3. How often do you have six or more drinks on one occasion?: Never Total Score: 1 BRIGITTE-7 AMB Questionnaire BRIGITTE-7 Date BRIGITTE - 7 assessed: 12/09/23 Feeling nervous, anxious, or on edge: 0 = Not at all Not being able to stop or control worryin = Several days Worrying too much about different things: 1 = Several days Trouble relaxin = Not at all Being so restless that it is hard to sit still: 0 = Not at all Becoming easily annoyed or irritable: 1 = Several days Feeling afraid as if something awful might happen: 0 = Not at all Total BRIGITTE-7 score (0-4 normal; 5-9 mild; 10-14 moderate; 15-21 severe): 3 Source: Developed by Drs. Damir Luna, Debra Valdes, Lexx Alanis and colleagues, with an educational aide from [employer]. BRIGITTE-7 Assessment Billing BRIGITTE-7 Assessment Tool: BRIGITTE-7 Assessment 90192 Review of Systems Const All systems reviewed & are unremarkable except as noted in HPI and below Reports no additional complaints Eyes Reports no additional complaints ENT Reports no additional complaints Card Reports no additional complaints Resp Reports no additional complaints GI Reports no additional complaints Reports no additional complaints Neuro Reports no additional complaints Physical exam (Primary Care) Vital Signs: Last Vital Signs Pulse 57 12/09/23 09:01 BP 124/74 12/09/23 09:01 Pulse Ox 97 12/09/23 09:01 Oxygen Delivery Method Room Air 12/09/23 09:01 BMI result Body Mass Index 27.2 Tobacco/Smoking Status: Tobacco use Status Tobacco use date assessed 12/09/23 12/09/23 09:16 Patient Tobacco Use Status Current everyday Tobacco 12/09/23 09:02 Tobacco use type Cigarette 12/09/23 09:16 e-Cigarette/Vaping Use Never Used 12/09/23 09:02 PHQ-9: PHQ-9 Score PHQ-9: Total score 0 12/09/23 11:23 Depression Screening Interpretation: Negative Thrive Assessment: Date of Thrive Assessment Date Thrive assessed 12/09/23 12/09/23 09:17 Currently or been in a relationship where the following occur: No concerns reported Const General: no acute distress HENMT Head: Yes normal to inspection Ears: hearing grossly normal bilaterally General nose exam: Normal external nose present Face and sinus: Yes normal facial exam Mouth: Normal oral and palatal mucosa present Throat: Yes posterior oropharynx normal Eyes General: appearance normal, both eyes and all related structures Neck Neck: Yes no lymphadenopathy and Yes supple Resp Effort & Inspection: normal respiratory effort Auscultation: diminished lung sounds Cardio Rhythm: regular rhythm Heart sounds: S1 normal heart sound present and S2 normal heart sound present GI Inspection: Yes normal to inspection Palpation (GI): Soft to palpation Percussion: Yes normal to percussion Auscultation: normal bowel sounds Assessment and Plan Assessment & Plan (1) COPD (chronic obstructive pulmonary disease): Code(s): J44.9 - Chronic obstructive pulmonary disease, unspecified Plan: Patient was advised to quit smoking, pulmonary function test will be obtained. Anoro will be tried for 1 month (2) Dysplastic nevi: Comment: On face Code(s): D23.9 - Other benign neoplasm of skin, unspecified Plan: Referred to dermatology (3) Colon cancer screening: Comment: cologuard 2022 Code(s): Z12.11 - Encounter for screening for malignant neoplasm of colon (4) Cough: Code(s): R05.9 - Cough, unspecified Plan: For chronic cough anti GERD diet discussed with the patient. Omeprazole 20 mg at bedtime for 1 month will be tried patient will follow-up in 6 weeks (5) Annual physical exam: Comment: Mammogram at [facility] annually. Patient declined colonoscopy. [facility] Code(s): Z00.00 - Encounter for general adult medical examination without abnormal findings (6) Hyperlipemia: Code(s): E78.5 - Hyperlipidemia, unspecified Plan: Continue pravastatin Orders: Orders PFT pulmonary function test Today J44.9 - Chronic obstructive pulmonary disease, unspecified Referrals Dermatology Referral D23.9 - Other benign neoplasm of skin, unspecified Medications: New omeprazole 20 mg PO DAILY 30 caps 1RF Anoro Ellipta 62.5-25 mcg/actuation (umeclidinium-vilanterol) 1 inh inhalation DAILY 60 ea 1RF NS Coding Level of Care Code Est Pt Prev Care >65y(89419) Diagnoses COPD (chronic obstructive pulmonary disease) J44.9 Dysplastic nevi D23.9 Colon cancer screening Z12.11 Cough R05.9 Annual physical exam Z00.00 Hyperlipemia E78.5 Additional Codes BRIGITTE-7 Assessment Billing - BRIGITTE-7 Assessment Tool: BRIGITTE-7 Assessment 69567 ([id number])
== END 2023-12-09 12:17 | disposition home or self-care (01) ==
PROVIDERS: PCP Internal Medicine; Visit Provider Internal Medicine
DX: Z00.00 Encounter for general adult medical examination without abnormal findings (principal); J44.9 Chronic obstructive pulmonary disease, unspecified; D23.9 Other benign neoplasm of skin, unspecified; Z12.11 Encounter for screening for malignant neoplasm of colon; R05.9 Cough, unspecified; E78.5 Hyperlipidemia, unspecified

== ENCOUNTER → 2023-12-09 08:50 | Outpatient (BNVA) | payer MEDICARE, SELFPAY | PROVIDERS: PCP Internal Medicine; Visit Provider Internal Medicine | DX: Z00.00 Encounter for general adult medical examination without abnormal findings (principal); J44.9 Chronic obstructive pulmonary disease, unspecified; D23.9 Other benign neoplasm of skin, unspecified; R05.9 Cough, unspecified; E78.5 Hyperlipidemia, unspecified | CPT/HCPCS: 96127 ==

== ENCOUNTER 2023-12-23 08:48 | Outpatient (AMB) | payer MEDICARE, SELFPAY ==
--- NOTE | 2023-12-23 09:03 | A.OFFVIS_ITS ---
Vital Signs 12/23/23 09:06 Height 5 ft 7 in Weight 174 lb BMI 27.2 Intake Visit Reasons: OV-RT knee pain/ OA-interested getting cortisone Intake Note: Zenia a 72 year old female who presents today for a follow up of right knee pain, last injection 07/17/23. Patient reports last injection provided her with relief and would like to discuss repeating injection. She has concerns with bending her knee in a side ways position she has discomfort. She also has a tightness with streching her leg. Allergies No Known Allergies Allergy (Verified 12/23/23 09:06) Medication List - Last Reconciled 12/23/23 by Shashi Shook PA-C Anoro Ellipta 62.5-25 mcg/actuation (umeclidinium-vilanterol) 1 inh inhalation DAILY NS bupropion HCl XL 300 mg PO DAILY omeprazole 20 mg PO DAILY pravastatin 10 mg PO DAILY HPI HPI OV-RT knee pain/ OA-interested getting cortisone: Details: 73-year-old female who returns to the office today for a follow-up of right knee pain. She states she has pain and discomfort in her knee with bending her knee in a sideways position. She also experiences tightness with stretching her leg. She had her last injection on 07/17/23 which provided her relief until recently. She would like to repeat the injection. [facility] Medical History Colon cancer screening Normal Pap smear Annual physical exam Surgical History Hx of section Family History Father No problems noted. Mother Stroke Social History Housing: House Patient Tobacco Use Status: Current everyday Tobacco user Tobacco use type: Cigarette Cigarettes Per Day: 4 e-Cigarette/Vaping Use: Never Used service: No Current occupational status: retired Cognitive needs: No Hearing needs: No Vision needs: Yes Review of Systems Const All systems reviewed & are unremarkable except as noted in HPI and below Physical Exam Vital Signs: BMI result Body Mass Index 27.2 Const General: cooperative and no acute distress Orientation/consciousness: patient oriented x3 Resp Effort & Inspection: normal respiratory effort and able to speak in complete sentences Cardio Peripheral pulses: Peripheral pulses 2+ throughout Neuro General: patient oriented x3 Extrem Other: Right knee: Skin intact, no erythema or joint effusion. No specific Tenderness along the medial or lateral joint line. ROM full with crepitus. Negative steinmans. No ligamentous laxity. NVI. Office Procedures Joint Injection/Aspiration Joint Injection/Aspiration Primary Site: right knee Prep: site was prepped using aseptic technique, ethochloride spray was applied and injection warnings given Injected: 80 mg of, DepoMedrol, with 8 mL of, 1% plain lidocaine and in the joint Approach Used: anterolateral Procedure: The patient tolerated the procedure well and there was some relief with the local anesthesia Coding 75715 - Glenohumeral/Tronchanteric Bursa/Intraarticular Procedure code (CPT) selection complete Assessment & Plan Assessment & Plan (1) Osteoarthritis of right knee: Code(s): M17.11 - Unilateral primary osteoarthritis, right knee Category: Medical Plan We discussed options today, which include steroid injection. The patient did co nsent to move forward with the right knee injection, which was tolerated well. I recommended rest, ice, and elevation and OTC anti-inflammatories as needed for discomfort. If symptoms persist or worsen over the next 6-8 weeks, patient will contact the office to order an MRI, otherwise follow-up as needed. Patient Instructions: Scribed for Shashi Shook PA-C, by Nick Griggs medical technologist clinical, on 12/23/2023 at 9:00 AM EST.? I, Shashi Shook PA-C, have personally reviewed and agree with the information entered by the scribe. Coding Level of Care Code Est Pt Level 3 (33508) Complex EM visit Add On G2211 Diagnoses Osteoarthritis of right knee M17.11 CPT Codes Coding - Joint 7: 97746 - Glenohumeral/Tronchanteric Bursa/Intraarticular ([id number])
[2023-12-23 09:06] VITALS: BMI 27.2
== END 2023-12-23 09:35 | disposition home or self-care (01) ==
PROVIDERS: PCP Internal Medicine; Visit Provider Physician Assistant
DX: M17.11 Unilateral primary osteoarthritis, right knee (principal)
CPT/HCPCS: 20610; 99213

== ENCOUNTER → 2023-12-23 08:48 | Outpatient (BNVA) | payer MEDICARE, SELFPAY | PROVIDERS: PCP Internal Medicine; Visit Provider Physician Assistant | DX: M17.11 Unilateral primary osteoarthritis, right knee (principal) | CPT/HCPCS: 20610; 99212; J1010 ==

== ENCOUNTER 2024-01-23 09:25 | Outpatient (AMB) | payer MEDICARE, SELFPAY ==
[2024-01-23 09:29] VITALS: BP 110/72; PULSE 63; O2SAT 97; BMI 27.1
--- NOTE | 2024-01-23 09:29 | MHC.PC.OV ---
Vital Signs 01/23/24 09:29 Height 5 ft 7 in Weight 173 lb BMI 27.1 BP 110/72 Blood Pressure Location Rt brachial Position Sitting Pulse 63 Pulse Source Pulse Oximeter Pulse Oximetry (%) 97 Oxygen Delivery Method Room Air Intake Visit Reasons: 6 week follow up Intake Note: Pt is here today for 6 weeks follow up visit. Allergies No Known Allergies Allergy (Verified 01/23/24 09:33) Medication List - Last Reconciled 01/23/24 by Caroline Allan MD bupropion HCl XL 300 mg PO DAILY omeprazole 20 mg PO DAILY pravastatin 10 mg PO DAILY Trelegy Ellipta 100-62.5-25 mcg (ebgghoklhtb-ysqloqjdp-jfxcqghd) 1 inh inhalation DAILY NS umeclidinium 62.5 mcg/actuation (Incruse Ellipta) 1 inh inhalation BEDTIME Tobacco use date assessed: 12/09/23 Dental Screening Dental Screen Date: 12/09/23 HPI 6 week follow up HPI Details Patient presents for the follow-up. Chronic cough improved somewhat on Incruse inhaler. She denies any sputum production. Patient reports seasonal allergy with nasal congestion and postnasal drip for the last few weeks. She denies pleurisy fever chills night sweats weight loss. Hyperlipidemia is controlled on pravastatin. [facility] Medical History Colon cancer screening Normal Pap smear Annual physical exam Surgical History (Reviewed 12/23/23 @ 09:09 by Audrey Pearson [facility]) Hx of section Family History Father No problems noted. Mother Stroke Social History Housing: House Patient Tobacco Use Status: Current everyday Tobacco user Tobacco use type: Cigarette Cigarettes Per Day: 4 e-Cigarette/Vaping Use: Never Used service: No Current occupational status: retired Cognitive needs: No Hearing needs: No Vision needs: Yes Questionnaire PHQ-9 Over the last 2 weeks, how often have you been bothered by any of the following problems? 2. Feeling down, depressed, or hopeless: not at all Source: Developed by Drs. Damir Luna, DebraLexx Lamas and colleagues, with an educational aide from [employer] Thrive Questionnaire Date Thrive assessed: 12/07/23 I am a: Patient What is your living situation today?: I have a steady place to live Within the past 12 months, did the food you bought not last and you didn't have the money to get more?: I choose not to answer this question Within the past 12 months, did you worry whether your food would run out before you got money to buy more?: I choose not to answer this question Do you have trouble paying for medicines?: No Do you have trouble getting transportation to medical appointments?: No Do you have trouble paying your heating and electricity bill?: I choose not to answer this question Do you have trouble taking care of your child, family member or friend?: No Do you have trouble with day-to-day activities such as bathing, preparing meals, shopping, managing finances, etc.?: No Are you currently unemployed and looking for a job?: I choose not to answer this question Are you interested in more education?: No Please select the resources that you would like help with: None Currently or been in a relationship where the following occur: No concerns reported THRIVE Score: 0 BRIGITTE-7 AMB Questionnaire BRIGITTE-7 Date BRIGITTE - 7 assessed: 12/09/23 Source: Developed by Drs. Damir Luna, Lexx Vazquez and colleagues, with an educational aide from [employer] Review of Systems Const All systems reviewed & are unremarkable except as noted in HPI and below ENT Reports no additional complaints Card Reports no additional complaints Resp Reports no additional complaints GI Reports no additional complaints Reports no additional complaints Physical exam (Primary Care) Vital Signs: Last Vital Signs Pulse 63 01/23/24 09:29 BP 110/72 01/23/24 09:29 Pulse Ox 97 01/23/24 09:29 Oxygen Delivery Method Room Air 01/23/24 09:29 BMI result Body Mass Index 27.1 Tobacco/Smoking Status: Tobacco use Status Tobacco use date assessed 12/09/23 01/23/24 09:34 Patient Tobacco Use Status Current everyday Tobacco 01/23/24 09:34 Tobacco use type Cigarette 01/23/24 09:34 e-Cigarette/Vaping Use Never Used 01/23/24 09:34 Thrive Assessment: Date of Thrive Assessment Date Thrive assessed 12/07/23 01/23/24 09:34 Currently or been in a relationship where the following occur: No concerns reported Const General: no acute distress HENMT Head: Yes normal to inspection Throat: Yes posterior oropharynx abnormal and Yes postnasal drainage Eyes General: appearance normal, both eyes and all related structures Resp Effort & Inspection: normal respiratory effort Auscultation: clear to auscultation bilaterally Cardio Rhythm: regular rhythm Heart sounds: S1 normal heart sound present and S2 normal heart sound present GI Inspection: Yes normal to inspection Palpation (GI): Soft to palpation Coding Level of Care Code Est Pt Level 3 (36616) Diagnoses COPD (chronic obstructive pulmonary disease) J44.9 Lung nodule R91.1 Assessment & Plan Assessment & Plan (1) COPD (chronic obstructive pulmonary disease): Code(s): J44.9 - Chronic obstructive pulmonary disease, unspecified Category: Medical Plan: Change Incruse to Trelegy, patient is waiting for PFTs, follow-up in 1 month (2) Lung nodule: Code(s): R91.1 - Solitary pulmonary nodule Category: Medical Plan: For history of questionable pulmonary nodule and history of smoking a half a pack a day for [address] of the chest will be obtained to evaluate Orders: Orders CT chest wo IV con Today J44.9 - Chronic obstructive pulmonary disease, unspecified, R91.1 - Solitary pulmonary nodule Medications: New Trelegy Ellipta 100-62.5-25 mcg (bxlcfgeqhsq-edoqtzwqs-ktacfhds) 1 inh inhalation DAILY 60 ea 3RF NS Discontinued tiotropium bromide (Spiriva with [employer]iHal[employer]) puncture 1 cap using device; one dose = 2 inhalations Discontinued Reason: Doctor's Order 1 cap inhalation DAILY 30 inhalations 0RF
== END 2024-01-23 09:53 | disposition home or self-care (01) ==
LOC: HO.HMCC 09:26
PROVIDERS: PCP Internal Medicine; Visit Provider Internal Medicine
DX: J44.9 Chronic obstructive pulmonary disease, unspecified (principal); R91.1 Solitary pulmonary nodule

== ENCOUNTER → 2024-01-23 09:25 | Outpatient (BNVA) | payer MEDICARE, SELFPAY | PROVIDERS: PCP Internal Medicine; Visit Provider Internal Medicine | DX: J44.9 Chronic obstructive pulmonary disease, unspecified (principal); R91.1 Solitary pulmonary nodule | CPT/HCPCS: 99212 ==

== ENCOUNTER 2024-02-27 09:16 | Outpatient (AMB) | payer MEDICARE, SELFPAY ==
--- NOTE | 2024-02-27 09:18 | A.OFFVIS_ITS ---
Vital Signs 02/27/24 09:23 Height 5 ft 7 in Weight 173 lb BMI 27.1 BP 108/72 Intake Visit Reasons: disorder of vulva/perineum/Referral Intake Note: Last pap smear [id number] always normal, last mammo in Dec 2023 normal done at [facility] Associate Professor Of Library Science: Associate Professor Of Library Science Present (Annette) Accompanied by: Self / Same As Patient Allergies No Known Allergies Allergy (Verified 02/27/24 09:23) HPI Comments Details: Presenting referred from [facility] for a right labial cyst. The patient reports seeing it 1st around six-months ago no pain or discharge, no other concerns. The patient is interested in a treatment to resolve it. [facility] Medical History Colon cancer screening Normal Pap smear Annual physical exam Surgical History Hx of section Family History Father No problems noted. Mother Stroke Social History Housing: House Patient Tobacco Use Status: Current everyday Tobacco user Tobacco use type: Cigarette Cigarettes Per Day: 4 e-Cigarette/Vaping Use: Never Used service: No Current occupational status: retired Cognitive needs: No Hearing needs: No Vision needs: Yes Female Reproductive History Menstrual Total pregnancies: 2 Full term: 2 Date of last Bone Density Screenin08/30/22 Review of Systems Const All systems reviewed & are unremarkable except as noted in HPI and below Physical Exam Vital Signs: Last Vital Signs BP 108/72 02/27/24 09:23 BMI result Body Mass Index 27.1 General: Yes no CVA tenderness External Female Exam: normal appearance of the urethra and other (Right labia 2.5 cm sebaceous cyst) Speculum Exam - Vagina: normal appearance of the vagina, normal palpation, no lesions and no masses Speculum Exam - Cervix: normal appearance of the cervix, normal palpation, no lesions, no masses and nontender Bimanual exam- vagina & uterus: normal bimanual exam, normal palpation, uterine size normal, normal palpation, uterine shape normal, No Cervical tenderness present and non-tender Bimanual Exam- Adnexa, other: normal adnexae Back/Spine/Pelvis Back: no CVA tenderness Office Procedures Incision/Drainage [facility] Incision/Drainage [facility] Details: Before the procedure was started d/w patient the procedure, alternatives (do no thing, medical rx), & all the risks associated with the procedure ( bleeding , infection, vulvar scarring, painful intercourse, injury to vessels, possible need for transfusion with all its risks) then patient signed the consent. Preoperative diagnosis: Right labial sebaceous cyst. Operation: Right labial sebaceous cyst I & D Post-operative diagnosis: Same Anesthesia: Lidocaine 1% 3cc used Procedure: The skin was prepped with Betadine, palpation was used for guidance, 11-blade was used to incise the skin contiguous with the Right labial sebaceous cyst. This yielded 2 cc of purulent fluid &substantially decompressed the swelling, a clean dressing was used at the end. The patient tolerated the procedure well. The patient was sent home in stable condition. Discharge Instructions: The patient was instructed to call if temp>100.4, abdominal pain, nausea/vomiting. This note was generated with a voice recognition program. Some errors may have been overlooked during the review of this note. Sometimes these errors may affect the content or meaning of a given sentence. 35813-Z&D of vulva/perineum All charges added?: Procedure code (CPT) selection complete Assessment & Plan Assessment & Plan (1) Sebaceous cyst of labia: Comment: Right side Code(s): N90.7 - Vulvar cyst Category: Medical Plan: Discussed with the patient the finding on pelvic exam right labial sebaceous cyst, the patient is interested in I&D. All pros and cons, risks and benefits of the procedure were discussed with the patient, I&D of right labial sebaceous cyst done, see procedure Orders: Orders Incision & Drainage [facility]NER Today N90.7 - Vulvar cyst Coding Level of Care Code New Pt Level 3 (77368) Procedure Only Diagnoses Sebaceous cyst of labia N90.7 CPT Codes Incision/Drainage [facility]NER - IDGYN 1: 36262-M&D of vulva/perineum ([id number])
[2024-02-27 09:23] VITALS: BP 108/72; BMI 27.1
== END 2024-02-27 09:59 | disposition home or self-care (01) ==
PROVIDERS: PCP Internal Medicine; Visit Provider Obstetrics & Gynecology
DX: N90.7 Vulvar cyst (principal)
CPT/HCPCS: 56405; 99203

== ENCOUNTER → 2024-02-27 09:16 | Outpatient (BNVA) | payer MEDICARE, SELFPAY | PROVIDERS: PCP Internal Medicine; Visit Provider Obstetrics & Gynecology | DX: N90.7 Vulvar cyst (principal) | CPT/HCPCS: 56405; 99202; 99459 ==

== ENCOUNTER 2024-02-28 12:17 | Outpatient (AMB) | payer MEDICARE, SELFPAY ==
--- NOTE | 2024-02-28 12:31 | A.OFFPC_ITS ---
Vital Signs 02/28/24 12:35 Height 5 ft 7 in Weight 174 lb BMI 27.2 BP 134/78 Blood Pressure Location Lt brachial Position Sitting Pulse 67 Pulse Source Pulse Oximeter Pulse Oximetry (%) 98 Oxygen Delivery Method Room Air Intake Visit Reasons: 1 mth f/up/ct/scan Intake Note: Naila is here today for 1 month follow up visit. Allergies No Known Allergies Allergy (Verified 02/28/24 12:38) Medication List - Last Reconciled 02/28/24 by Caroline Allan MD baclofen 10 mg PO BEDTIME bupropion HCl XL 300 mg PO DAILY omeprazole 20 mg PO DAILY pravastatin 10 mg PO DAILY Trelegy Ellipta 100-62.5-25 mcg ([id number]) 1 inh inhalation DAILY NS Tobacco use date assessed: 12/09/23 Dental Screening Dental Screen Date: 12/09/23 HPI 1 mth f/up/ct/scan HPI Details Patient presents for the follow-up of chronic cough. She is feeling better using Trelegy daily and denies wheezing shortness or breath. Patient is cutting down on smoking down to a few cigarettes a day. She complains of left lower back discomfort worse when twisting to side for 5 days. She denies weakness or numbness in extremities dysuria abdominal pain [facility] Medical History (Updated 02/28/24 @ 13:35 by Caroline Allan MD) Colon cancer screening Normal Pap smear Annual physical exam Surgical History Hx of section Family History Father No problems noted. Mother Stroke Social History Housing: House Patient Tobacco Use Status: Current everyday Tobacco user Tobacco use type: Cigarette Cigarettes Per Day: 4 e-Cigarette/Vaping Use: Never Used service: No Current occupational status: retired Cognitive needs: No Hearing needs: No Vision needs: Yes Questionnaire PHQ-9 Over the last 2 weeks, how often have you been bothered by any of the following problems? 1. Little interest or pleasure in doing things: not at all 2. Feeling down, depressed, or hopeless: not at all 3. Trouble falling or staying asleep, or sleeping too much: several days 4. Feeling tired or having little energy: several days 5. Poor appetite or overeating: not at all 6. Feeling bad about yourself - or that you are a failure or have let yourself or your family down: not at all 7. Trouble concentrating on things, such as reading the newspaper or watching television: not at all 8. Moving or speaking so slowly that other people could have noticed. Or the op posite - being so fidgety or restless that you have been moving around a lot more than usual: not at all 9. Thoughts that you would be better off or of hurting yourself in some way: not at all Total score: 2 Depression Screening Interpretation: Negative Depression Screening Done: Yes 62014 - PHQ-9 Billing: Yes Source: Developed by Drs. Damir Luna, Debra Valdes, Lexx Alanis and colleagues, with an educational aide from [employer]. Thrive Questionnaire Date Thrive assessed: 12/07/23 I am a: Patient What is your living situation today?: I have a steady place to live Within the past 12 months, did the food you bought not last and you didn't have the money to get more?: I choose not to answer this question Within the past 12 months, did you worry whether your food would run out before you got money to buy more?: I choose not to answer this question Do you have trouble paying for medicines?: No Do you have trouble getting transportation to medical appointments?: No Do you have trouble paying your heating and electricity bill?: I choose not to answer this question Do you have trouble taking care of your child, family member or friend?: No Do you have trouble with day-to-day activities such as bathing, preparing meals, shopping, managing finances, etc.?: No Are you currently unemployed and looking for a job?: I choose not to answer this question Are you interested in more education?: No Please select the resources that you would like help with: None Currently or been in a relationship where the following occur: No concerns reported THRIVE Score: 0 BRIGITTE-7 AMB Questionnaire BRIGITTE-7 Date BRIGITTE - 7 assessed: 12/09/23 Source: Developed by Drs. Damir L. CherylDebra shaw, Lexx Alanis and colleagues, with an educational aide from [employer]. Review of Systems Const All systems reviewed & are unremarkable except as noted in HPI and below ENT Reports no additional complaints Card Reports no additional complaints Resp Reports no additional complaints GI Reports no additional complaints Reports no additional complaints Physical exam (Primary Care) Vital Signs: Last Vital Signs Pulse 67 02/28/24 12:35 BP 134/78 02/28/24 12:35 Pulse Ox 98 02/28/24 12:35 Oxygen Delivery Method Room Air 02/28/24 12:35 BMI result Body Mass Index 27.2 Tobacco/Smoking Status: Tobacco use Status Tobacco use date assessed 12/09/23 02/28/24 12:32 Patient Tobacco Use Status Current everyday Tobacco 02/28/24 12:32 Tobacco use type Cigarette 02/28/24 12:32 e-Cigarette/Vaping Use Never Used 02/28/24 12:32 PHQ-9: PHQ-9 Score PHQ-9: Total score 2 02/28/24 12:40 Depression Screening Interpretation: Negative Thrive Assessment: Date of Thrive Assessment Date Thrive assessed 12/07/23 02/28/24 12:32 Currently or been in a relationship where the following occur: No concerns reported Const General: no acute distress HENMT Head: Yes normal to inspection Throat: Yes posterior oropharynx normal Eyes General: appearance normal, both eyes and all related structures Neck Neck: Yes supple Resp Effort & Inspection: normal respiratory effort Auscultation: clear to auscultation bilaterally Cardio Rhythm: regular rhythm Heart sounds: S1 normal heart sound present and S2 normal heart sound present GI Inspection: Yes normal to inspection Palpation (GI): Soft to palpation Coding Level of Care Code Est Pt Level 4 (24020) Diagnoses Cough R05.9 COPD (chronic obstructive pulmonary disease) J44.9 Back pain M54.9 Hyperlipemia E78.5 Additional Codes PHQ-9 - 34184 - PHQ-9 Billing: Yes ([id number]) Assessment & Plan Assessment & Plan (1) Cough: Comment: [facility] PFT nl spirometry, normal diffusing capacity 01/2024 Code(s): R05.9 - Cough, unspecified Category: Medical Plan: Patient will continue Trelegy for another month and then taper it off. (2) COPD (chronic obstructive pulmonary disease): Code(s): J44.9 - Chronic obstructive pulmonary disease, unspecified Category: Medical Plan: Continue Trelegy tobacco quitting discussed with the patient patient will have a CT of the chest next week (3) Back pain: Code(s): M54.9 - Dorsalgia, unspecified Category: Medical Plan: Supportive care discussed with the patient, baclofen prn (4) Hyperlipemia: Code(s): E78.5 - Hyperlipidemia, unspecified Category: Medical Plan: Continue pravastatin Medications: New baclofen 10 mg PO BEDTIME 10 tabs 0RF
[2024-02-28 12:35] VITALS: BP 134/78; PULSE 67; O2SAT 98; BMI 27.2
== END 2024-02-28 13:32 | disposition home or self-care (01) ==
PROVIDERS: PCP Internal Medicine; Visit Provider Internal Medicine
DX: R05.9 Cough, unspecified (principal); J44.9 Chronic obstructive pulmonary disease, unspecified; M54.9 Dorsalgia, unspecified; E78.5 Hyperlipidemia, unspecified

== ENCOUNTER → 2024-02-28 12:17 | Outpatient (BNVA) | payer MEDICARE, SELFPAY | PROVIDERS: PCP Internal Medicine; Visit Provider Internal Medicine | DX: R05.9 Cough, unspecified (principal); J44.9 Chronic obstructive pulmonary disease, unspecified; E78.5 Hyperlipidemia, unspecified; M54.9 Dorsalgia, unspecified | CPT/HCPCS: 96127; 99212 ==

== ENCOUNTER 2024-03-06 07:11 | Outpatient (REF) | payer MEDICARE, SELFPAY | END 2024-03-06 07:12 | disposition home or self-care (01) | LOC: HO.CT 07:11 | PROVIDERS: PCP Internal Medicine; Visit Provider Internal Medicine | DX: J44.9 Chronic obstructive pulmonary disease, unspecified (principal); R91.1 Solitary pulmonary nodule | CPT/HCPCS: 71250 ==

== ENCOUNTER → 2024-03-06 07:13 | Outpatient (BNV) | payer MEDICARE, SELFPAY | PROVIDERS: PCP Internal Medicine; Visit Provider Radiology Diagnostic Radiology | DX: J44.9 Chronic obstructive pulmonary disease, unspecified (principal) | CPT/HCPCS: 71250 ==

== ENCOUNTER 2024-04-20 11:05 | Outpatient (AMB) | payer MEDICARE, SELFPAY ==
[2024-04-20 11:06] VITALS: BP 128/74; PULSE 68; TEMP 36.8; O2SAT 98; BMI 27.1
--- NOTE | 2024-04-20 11:06 | A.OFFPC_ITS ---
Vital Signs 04/20/24 11:06 Height 5 ft 7 in Weight 173 lb BMI 27.1 BP 128/74 Blood Pressure Location Lt brachial Position Sitting Pulse 68 Pulse Source Pulse Oximeter Temp 98.2 F Temp Source Oral Pulse Oximetry (%) 98 Oxygen Delivery Method Room Air Intake Visit Reasons: lower back pain Intake Note: Pt is here today for a sick visit. Pt c/o lower back pain. Pt states that she was at [facility] ER in February for lower L back pain and side pain. Allergies No Known Allergies Allergy (Verified 04/20/24 11:13) Medication List - Last Reconciled 04/20/24 by Caroline Allan MD bupropion HCl XL 300 mg PO DAILY pravastatin 10 mg PO DAILY Trelegy Ellipta 100-62.5-25 mcg (lrvjjwbyfaw-wcjndpbpw-[id number]) 1 inh inhalation DAILY NS Tobacco use date assessed: 04/20/24 Fall risk assessment: No Falls in past year Last assessed Fall Risk: 04/20/24 Dental Screening Dental Screen Date: 04/20/24 Did you have a dental visit in the last 12 months?: Yes Did you have a dental problem in the last 6 months where you did not have access to dental care?: No Was dental information given to patient?: Patient has dentist HPI lower back pain HPI Details Patient presents complaining of persistent left-sided lower back pain positional worse when change in body position. The pain was radiating to left groin last month and patient when to the ER. She had negative workup including CT of the abdomen and pelvis. Patient denies any change in bowel habits but reports increased gas. She is interested in scheduling screening colonoscopy for which she is overdue. Patient denies lower back pain radiating to lower extremities weakness or numbness in extremities. COPD is stable on Trelegy but patient can not afford the co-payment and Wixela is preferred on her insurance formulary. Hyperlipidemia is controlled on pravastatin. [facility] Medical History Colon cancer screening Normal Pap smear Annual physical exam Surgical History Hx of section Family History Father No problems noted. Mother Stroke Social History Housing: House Patient Tobacco Use Status: Current everyday Tobacco user Tobacco use type: Cigarette Cigarettes Per Day: 4 e-Cigarette/Vaping Use: Never Used service: No Current occupational status: retired Cognitive needs: No Hearing needs: No Vision needs: Yes Questionnaire PHQ-9 Over the last 2 weeks, how often have you been bothered by any of the following problems? 1. Little interest or pleasure in doing things: not at all 2. Feeling down, depressed, or hopeless: not at all 3. Trouble falling or staying asleep, or sleeping too much: several days 4. Feeling tired or having little energy: several days 5. Poor appetite or overeating: not at all 6. Feeling bad about yourself - or that you are a failure or have let yourself or your family down: not at all 7. Trouble concentrating on things, such as reading the newspaper or watching television: not at all 8. Moving or speaking so slowly that other people could have noticed. Or the opposite - being so fidgety or restless that you have been moving around a lot more than usual: not at all 9. Thoughts that you would be better off or of hurting yourself in some way: not at all Total score: 2 Depression Screening Interpretation: Negative Depression Screening Done: Yes 46021 - PHQ-9 Billing: Yes Source: Developed by Drs. Damir Luna, Debra Valdes, Lexx Alanis and colleagues, with an educational aide from [employer]. Thrive Questionnaire Date Thrive assessed: 04/20/24 I am a: Patient What is your living situation today?: I have a steady place to live Within the past 12 months, did the food you bought not last and you didn't have the money to get more?: Often true Within the past 12 months, did you worry whether your food would run out before you got money to buy more?: I choose not to answer this question Do you have trouble paying for medicines?: I choose not to answer this question Do you have trouble getting transportation to medical appointments?: No Do you have trouble paying your heating and electricity bill?: I choose not to answer this question Do you have trouble taking care of your child, family member or friend?: I choose not to answer this question Do you have trouble with day-to-day activities such as bathing, preparing meals, shopping, managing finances, etc.?: No Are you currently unemployed and looking for a job?: I choose not to answer this question Are you interested in more education?: No Currently or been in a relationship where the following occur: I choose not to answer THRIVE Score: 1 AUDIT C Alcohol Use Questionnaire (AUDIT-C) 1. How often do you have a drink containing alcohol?: Monthly or less 2. How many drinks containing alcohol do you have on a typical day when you are drinking?: 1 or 2 3. How often do you have six or more drinks on one occasion?: Never Total Score: 1 BRIGITTE-7 AMB Questionnaire BRIGITTE-7 Date BRIGITTE - 7 assessed: 04/20/24 Feeling nervous, anxious, or on edge: 0 = Not at all Not being able to stop or control worryin = Several days Worrying too much about different things: 1 = Several days Trouble relaxin = Not at all Being so restless that it is hard to sit still: 0 = Not at all Becoming easily annoyed or irritable: 1 = Several days Feeling afraid as if something awful might happen: 1 = Several days Total BRIGITTE-7 score (0-4 normal; 5-9 mild; 10-14 moderate; 15-21 severe): 4 Source: Developed by Drs. Damir Luna, Debra Valdes, Lexx Alanis and colleagues, with an educational aide from [employer]. BRIGITTE-7 Assessment Billing BRIGITTE-7 Assessment Tool: BRIGITTE-7 Assessment 79200 Review of Systems Const All systems reviewed & are unremarkable except as noted in HPI and below Eyes Reports no additional complaints ENT Reports no additional complaints Resp Reports no additional complaints GI Reports no additional complaints Reports no additional complaints Physical exam (Primary Care) Vital Signs: Last Vital Signs Temp 98.2 F 04/20/24 11:06 Pulse 68 04/20/24 11:06 BP 128/74 04/20/24 11:06 Pulse Ox 98 04/20/24 11:06 Oxygen Delivery Method Room Air 04/20/24 11:06 BMI result Body Mass Index 27.1 Tobacco/Smoking Status: Tobacco use Status Tobacco use date assessed 04/20/24 04/20/24 11:16 Patient Tobacco Use Status Current everyday Tobacco 04/20/24 11:06 Tobacco use type Cigarette 04/20/24 11:06 e-Cigarette/Vaping Use Never Used 04/20/24 11:06 PHQ-9: PHQ-9 Score PHQ-9: Total score 2 04/20/24 11:16 Depression Screening Interpretation: Negative Thrive Assessment: Date of Thrive Assessment Date Thrive assessed 04/20/24 04/20/24 11:16 Currently or been in a relationship where the following occur: I choose not to answer Const General: no acute distress HENMT Mouth: Normal oral and palatal mucosa present Eyes General: appearance normal, both eyes and all related structures Resp Effort & Inspection: normal respiratory effort Auscultation: clear to auscultation bilaterally Cardio Rhythm: regular rhythm Heart sounds: S1 normal heart sound present and S2 normal heart sound present GI Inspection: Yes normal to inspection Palpation (GI): Soft to palpation Percussion: Yes normal to percussion Auscultation: normal bowel sounds Back/Spine/Pelvis Other: Reproducible tenderness over left mid or lower lumbar paraspinal region, straight leg rising 90 degrees bilaterally Coding Level of Care Code Est Pt Level 4 (39883) Diagnoses COPD (chronic obstructive pulmonary disease) J44.9 Back pain M54.9 Hyperlipemia E78.5 Vitamin D deficiency E55.9 Colon cancer screening Z12.11 Additional Codes BRIGITTE-7 Assessment Billing - BRIGITTE-7 Assessment Tool: BRIGITTE-7 Assessment 20391 ([id number]) PHQ-9 - 38159 - PHQ-9 Billing: Yes ([id number]) Assessment & Plan Assessment & Plan (1) COPD (chronic obstructive pulmonary disease): Code(s): J44.9 - Chronic obstructive pulmonary disease, unspecified Category: Medical Plan: Start Wixela instead of Trelegy, tobacco quitting discussed with the patient (2) Back pain: Code(s): M54.9 - Dorsalgia, unspecified Category: Medical Plan: Meloxicam for then days is prescribed patient is referred to physical therapy (3) Hyperlipemia: Code(s): E78.5 - Hyperlipidemia, unspecified Category: Medical Plan: Continue statin (4) Vitamin D deficiency: Code(s): E55.9 - Vitamin D deficiency, unspecified Category: Medical Plan: Continue vitamin-D supplement (5) Colon cancer screening: Comment: [place] 2022 Code(s): Z12.11 - Encounter for screening for malignant neoplasm of colon Category: Medical Plan: Referred to GI for colonoscopy patient is overdue Orders: Orders TSH reflex Free T4 8 Months E55.9 - Vitamin D deficiency, unspecified, E78.5 - Hyperlipidemia, unspecified, M17.11 - Unilateral primary osteoarthritis, right knee, Z78.0 - Asymptomatic menopausal state Vitamin D 25-OH Total 8 Months E55.9 - Vitamin D deficiency, unspecified, E78.5 - Hyperlipidemia, unspecified, M17.11 - Unilateral primary osteoarthritis, right knee, Z78.0 - Asymptomatic menopausal state PT Evaluation and Treatment Today M54.9 - Dorsalgia, unspecified Comprehensive [place]. Panel Fast 8 Months E55.9 - Vitamin D deficiency, unspecified, E78.5 - Hyperlipidemia, unspecified, M17.11 - Unilateral primary osteoarthritis, right knee, Z78.0 - Asymptomatic menopausal state Lipid Panel 8 Months E55.9 - Vitamin D deficiency, unspecified, E78.5 - Hyperlipidemia, unspecified, M17.11 - Unilateral primary osteoarthritis, right knee, Z78.0 - Asymptomatic menopausal state Complete Blood Count Auto Diff 8 Months E55.9 - Vitamin D deficiency, unspecified, E78.5 - Hyperlipidemia, unspecified, M17.11 - Unilateral primary osteoarthritis, right knee, Z78.0 - Asymptomatic menopausal state Referrals Gastroenterology Referral Z00.00 - Encounter for general adult medical examination without abnormal findings Medications: New Wixela Inhub 250-50 mcg/dose (fluticasone propion-salmeterol) 1 inh inhalation BID 60 ea 3RF NS meloxicam 15 mg PO DAILY 10 tabs 0RF Discontinued Trelegy Ellipta 100-62.5-25 mcg (hdqtdyzbblt-mnruyejzg-xmprqlqv) Discontinued Reason: Doctor's Order 1 inh inhalation DAILY 60 ea 3RF NS
--- OUTSIDE RECORDS SUMMARY | 2024-04-20 16:02 | XMS_ITS | Clinical Summary ---
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 Name Role Phone Unavailable Primary Care Provider Unavailabl e Immunizations Name Administration Dates Next Due Influenza High-dose Quadriva lent Preservative Free 12/09/2021 Influenza Quadrivalent Adjuvanted 12/13/2022,,12/25/2019 Influenza, IIV3, injectable 12/28/2015, 5 Pfizer Covid-19 Vaccine 12+ 01/24/2023 Social History Tobacco Use Types Packs/Day Years Used Date Smoking Tobacco: Never Assessed Comments Unknown Sex and Gender Information Value Date Recorded Sex Assigned at Unknown 01/24/2023 2:43 PM EDT Legal Sex Female 12:13 PM EDT Gender Identity Choose not to disclose 2:43 PM EDT Sexual Orientation Something else 01/24/2023 2: 43 PM EDT Plan of Treatment Health Maintenance Due Date Last Done Comments CT Colonography 1952 Colonoscopy 1952 Depression Screening 1952 FIT 1952 FOBT 1952 Lipid Panel 1952 SDOH Screening 1952 Sigmoidoscopy 1952 Alcohol/Substance Use Screening 1964 Tobacco Screening 1964 Hepatitis C Screening 1970 DTaP/Tdap/Td Vaccines (1 - Tdap) 1971 Mammogram 1992 Zoster Vaccines (1 of 2) 2002 Pneumococcal Vaccine: 65+ Years (1 of 1 - PCV) 2017 COVID-19 Vaccine ( - season) 2023 01/24/2023, 01/04/2022, 01/20/2021, Additional history exists Influenza Vaccine (#1) 2023 3, 12/09/2021, 01/04/2021, Additional history exists Colorectal Cancer Screening 12/13/2025 FIT DNA/Cologuard 12/13/2025 12/13/2022, 11/24/2019 RSV Patients and Patients Aged 60 years or older (1 - 1-dose 75+ series) 2027 HIB Vaccines Aged Out No longer eligi ble based on patient's age to complete this topic HPV Vaccines Aged Out No longer eligi ble based on patient's age to complete this topic Hepatitis A Vaccines Aged Out No long er eligible based on patient's age to complete this topic Hepatitis B Vaccines Aged Out No long er eligible based on patient's age to complete this topic IPV Vaccines Aged Out No longer eligi ble based on patient's age to complete this topic Meningococcal Vaccine Aged Out No [place] jessica eligible based on patient's age to complete this topic RSV under 20 months Aged Out No longe r eligible based on patient's age to complete this topic Rotavirus Vaccines Aged Out No longer eligible based on patient's age to complete this topic Insurance [facility]
== END 2024-04-20 11:43 | disposition home or self-care (01) ==
PROVIDERS: PCP Internal Medicine; Visit Provider Internal Medicine
DX: J44.9 Chronic obstructive pulmonary disease, unspecified (principal); M54.9 Dorsalgia, unspecified; E78.5 Hyperlipidemia, unspecified; E55.9 Vitamin D deficiency, unspecified; Z12.11 Encounter for screening for malignant neoplasm of colon

== ENCOUNTER → 2024-04-20 11:05 | Outpatient (BNVA) | payer MEDICARE, SELFPAY | PROVIDERS: PCP Internal Medicine; Visit Provider Internal Medicine | DX: J44.9 Chronic obstructive pulmonary disease, unspecified (principal); M54.9 Dorsalgia, unspecified; E78.5 Hyperlipidemia, unspecified; E55.9 Vitamin D deficiency, unspecified | CPT/HCPCS: 96127; 99212 ==

== ENCOUNTER 2024-07-01 09:00 | Outpatient (RCR) | payer MEDICARE, SELFPAY ==
--- NOTE | 2024-06-10 11:55 | MHC.PT.EP ---
[facility] [place] Office [place] Office [place] Office [address] Vivek Ventura [address] [phone] F: [phone] F: [phone] F: [phone] F: [phone] Physical Therapy Plan of Care Date of Evaluation: 06/10/24 Date of Surgery: n/a Diagnosis: back pain, dorsalgia Assessment: Patient is a 74 year old female presenting to PT with complaints of pain in her low back. Pt reports onset of pain began March 2024 due to insidious onset. She presents today with impairments in pain, hip strength, increase tissue density. Pt's current occupation is retired, with baseline physical activities including ADLs, sitting, standing, yardwork. Pt expresses buttermaker goal of reducing pain, and is motivated to work towards this in PT. Clinical presentation today is most consistent with signs and sx associated with back pain and pt will benefit from skilled PT 2 week x 4 weeks to address the following problems and impairments noted upon evaluation: pain, hip strength, increase tissue density. These problems limit the patient with the following functional activities: ADLs, sitting, standing, yardwork. The prescribed treatment plan of care is medically necessary. Co-morbidities of denies were identified and taken into considerations of plan of care. Pt was educated on HEP, role of PT, prognosis, POC. Frequency and Duration: The patient will be seen 2 x week x 4 week Short Term Goals: Pt will demonstrate improved hip MMT strength by 1/3 grade in 2 weeks. Pt will demonstrate less density to QL on L in 2 weeks. Grease Maker Head Goals: Pt will demonstrate improved Leslie score by 10% in 4 weeks for improved functional mobility. Pt will demonstrate ability to sit with min to no pain in 4 weeks for return to PLOF. Pt will demonstrate ability to stand with min to no pain in 4 weeks for improved tolerance to yardwork and household activities. Treatment Plan: Modalities to reduce pain, spasms and effusion. Manual therapy to restore motion and function. Therapeutic exercise to improve strength and flexibility. Neuromuscular re-education for posture and balance. Therapeutic activities to return to functional activities of daily living. Electronically signed by: Mey Arreola, PT, DPT, ATC Please sign and return to therapist. Thank you for your referral.
--- NOTE | 2024-08-03 06:56 | MHC.PT.DC ---
[facility] [place] Office [place] Office [place] Office [address] [phone] F: [phone] F: [phone] F: [phone] F: [phone] Physical Therapy Discharge Report Diagnosis: back pain, dorsalgia Date of Surgery: n/a Date of Evaluation: 06/10/24 Date of Discharge: 08/03/24 Treatments to Date: 5 Cancellations to Date: 4 No Shows to Date: 0 Discharge Status: Discharge Summary: Pt has not attended skilled PT in >30 days so therefore to be d/c per policy. Electronically signed by: Mey Arreola, PT, DPT, ATC Please sign and return to therapist. Thank you for your referral.
== END 2024-08-03 06:57 | disposition home or self-care (01) ==
LOC: HO.PTCHIC 09:00
PROVIDERS: PCP Internal Medicine; Visit Provider Internal Medicine
DX: M54.9 Dorsalgia, unspecified (principal)
CPT/HCPCS: 97110; 97140; 97161

== ENCOUNTER 2024-07-03 13:36 | Outpatient (AMB) | payer MEDICARE, SELFPAY ==
--- NOTE | 2024-07-03 13:43 | MHC.PC.OV ---
Vital Signs 07/03/24 13:46 Height 5 ft 7 in Weight 162 lb BMI 25.4 BP 132/80 Blood Pressure Location Lt brachial Position Sitting Pulse 72 Pulse Source Pulse Oximeter Pulse Oximetry (%) 97 Oxygen Delivery Method Room Air Intake Visit Reasons: Back Issues Intake Note: Pt is here today for a follow up visit on back pain. Pt states that when she takes a deep breath she gets pain on the R side of her back. Allergies No Known Allergies Allergy (Verified 07/03/24 13:49) Medication List - Last Reconciled 07/03/24 by Caroline Allan MD bupropion HCl XL 300 mg PO DAILY pravastatin 10 mg PO DAILY Wixela Inhub 250-50 mcg/dose (fluticasone propion-salmeterol) 1 inh inhalation BID NS Tobacco use date assessed: 07/03/24 Dental Screening Dental Screen Date: 04/20/24 HPI Back Issues HPI Details Patient presents for the follow-up. Chronic asthma/COPD is stable on Wixela. Chronic depression anxiety controlled on bupropion and hyperlipidemia stable on pravastatin. She has been going for physical therapy for chronic lower back pain. She is feeling better but complains of some discomfort in the right lower lumbar region. Patient denies weakness or numbness in extremities PFSH Medical History Colon cancer screening Normal Pap smear Annual physical exam Surgical History Hx of section Family History Father No problems noted. Mother Stroke Social History Housing: House Patient Tobacco Use Status: Current everyday Tobacco user Tobacco use type: Cigarette Cigarettes Per Day: 4 e-Cigarette/Vaping Use: Never Used service: No Current occupational status: retired Cognitive needs: No Hearing needs: No Vision needs: Yes Questionnaire PHQ-9 Over the last 2 weeks, how often have you been bothered by any of the following problems? 1. Little interest or pleasure in doing things: not at all 2. Feeling down, depressed, or hopeless: not at all 3. Trouble falling or staying asleep, or sleeping too much: several days 4. Feeling tired or having little energy: several days 5. Poor appetite or overeating: not at all 6. Feeling bad about yourself - or that you are a failure or have let yourself or your family down: not at all 7. Trouble concentrating on things, such as reading the newspaper or watching television: not at all 8. Moving or speaking so slowly that other people could have noticed. Or the opposite - being so fidgety or restless that you have been moving around a lot more than usual: not at all 9. Thoughts that you would be better off or of hurting yourself in some way: not at all Total score: 2 Depression Screening Interpretation: Negative Depression Screening Done: Yes 11213 - PHQ-9 Billing: Yes Source: Developed by Drs. Damir Luna, Lexx Vazquez and colleagues, with an educational aide from [employer]. Thrive Questionnaire Date Thrive assessed: 04/17/24 I am a: Patient What is your living situation today?: I have a steady place to live Within the past 12 months, did the food you bought not last and you didn't have the money to get more?: Often true Within the past 12 months, did you worry whether your food would run out before you got money to buy more?: I choose not to answer this question Do you have trouble paying for medicines?: I choose not to answer this question Do you have trouble getting transportation to medical appointments?: No Do you have trouble paying your heating and electricity bill?: I choose not to answer this question Do you have trouble taking care of your child, family member or friend?: I choose not to answer this question Do you have trouble with day-to-day activities such as bathing, preparing meals, shopping, managing finances, etc.?: No Are you currently unemployed and looking for a job?: I choose not to answer this question Are you interested in more education?: No Currently or been in a relationship where the following occur: I choose not to answer THRIVE Score: 1 BRIGITTE-7 AMB Questionnaire BRIGITTE-7 Date BRIGITTE - 7 assessed: 04/20/24 Source: Developed by Drs. Damir Luna, Lexx Vazquez and colleagues, with an educational aide from [employer]. Review of Systems Const All systems reviewed & are unremarkable except as noted in HPI and below Eyes Reports no additional complaints ENT Reports no additional complaints Card Reports no additional complaints Resp Reports no additional complaints GI Reports no additional complaints Physical exam (Primary Care) Vital Signs: Last Vital Signs Pulse 72 07/03/24 13:46 BP 132/80 07/03/24 13:46 Pulse Ox 97 07/03/24 13:46 Oxygen Delivery Method Room Air 07/03/24 13:46 BMI result Body Mass Index 25.4 Tobacco/Smoking Status: Tobacco use Status Tobacco use date assessed 07/03/24 07/03/24 13:50 Patient Tobacco Use Status Current everyday Tobacco 07/03/24 13:45 Tobacco use type Cigarette 07/03/24 13:45 e-Cigarette/Vaping Use Never Used 07/03/24 13:45 PHQ-9: PHQ-9 Score PHQ-9: Total score 2 07/03/24 13:45 Depression Screening Interpretation: Negative Thrive Assessment: Date of Thrive Assessment Date Thrive assessed 04/17/24 07/03/24 13:45 Currently or been in a relationship where the following occur: I choose not to answer Const General: no acute distress HENMT Head: Yes normal to inspection Resp Effort & Inspection: normal respiratory effort Auscultation: clear to auscultation bilaterally Cardio Rhythm: regular rhythm Heart sounds: S1 normal heart sound present and S2 normal heart sound present GI Inspection: Yes normal to inspection Palpation (GI): Soft to palpation Percussion: Yes normal to percussion Auscultation: normal bowel sounds Back/Spine/Pelvis Other: Decreased range of motion in the lumbar spine paraspinal tenderness right more than left, straight leg rising 90 degrees bilaterally Coding Level of Care Code Est Pt Level 4 (04651) Diagnoses Sciatica M54.30 COPD (chronic obstructive pulmonary disease) J44.9 Hyperlipemia E78.5 Additional Codes PHQ-9 - 86821 - PHQ-9 Billing: Yes ([id number]) Assessment & Plan Assessment & Plan (1) Sciatica: Code(s): M54.30 - Sciatica, unspecified side Category: Medical Plan: Obtain x-ray of lumbar spine continue physical therapy and home exercises (2) COPD (chronic obstructive pulmonary disease): Comment: 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
[2024-07-03 13:46] VITALS: BP 132/80; PULSE 72; O2SAT 97; BMI 25.4
--- OUTSIDE RECORDS SUMMARY | 2024-07-03 13:56 | XMS_ITS | Clinical Summary ---
Author Organization [employer] Address [address] [place] [address] [address] [place] [address] Care Team Providers Care Legal Analyst Name Role Phone Unavailable Primary Care Provider [...] Vaccines (1 - Tdap) 1971 Mammogram 1992 Pneumococcal Vaccine: 50+ Years (1 of 1 - PCV) 2002 Zoster Vaccines (1 of 2) 2002 COVID-19 Vaccine (6 - season) 2023 01/24/2023, 01/04/2022, 01/20/2021, Additional [...]
== END 2024-07-03 15:00 | disposition home or self-care (01) ==
LOC: HO.HMCC 13:36
PROVIDERS: PCP Internal Medicine; Visit Provider Internal Medicine
DX: M54.30 Sciatica, unspecified side (principal); J44.9 Chronic obstructive pulmonary disease, unspecified; E78.5 Hyperlipidemia, unspecified

== ENCOUNTER 2024-07-03 13:36 | Outpatient (REF) | payer MEDICARE, SELFPAY ==
--- NOTE | ~2024-07-03 | XR_ITS ---
EXAMINATION: XR LUMBOSACRAL SPINE CLINICAL INFORMATION: M54.30 - Sciatica, unspecified side COMPARISON: None available. TECHNIQUE: Three views of the lumbosacral spine. FINDINGS: There is a mild to moderate right convex thoracolumbar scoliosis, apex at T12-L1. There is straightening of the normal lordosis. There is a mild chronic appearing inferior endplate compression deformity of T12. No additional compression deformities, fractures, or suspicious bone lesions. There is a minimal degenerative type retrolisthesis of L2 on L3. There is a 4 mm anterolisthesis of L5 on S1. Alignment is otherwise anatomic. Severe multilevel disc space degeneration with disc vacuum phenomenon at all levels. Sclerosis of the endplates present at L3-4 and L4-5. Associated marginal disc osteophytic spurs most significant projecting to the right at L4-5. There is normal facet alignment. There are hypertrophic degenerative facet changes spanning L3-S1. The sacrum is intact. There are mild degenerative changes in both SI joints. There are vascular calcifications in the soft tissues. XR/XR lumbar spine 2-3V IMPRESSION: 1. Mild to moderate right convex thoracolumbar scoliosis. Straightening of the lordosis. 2. Moderate to severe multilevel degenerative spondylosis. 3. Chronic appearing mild inferior endplate compression deformity of T12. Electronically signed by: Gabriel Olea MD 07/03/2024 03:12 PM EDT
== END 2024-07-03 13:37 | disposition home or self-care (01) ==
LOC: HO.HMGCX 13:36
PROVIDERS: PCP Internal Medicine; Visit Provider Internal Medicine
DX: M54.30 Sciatica, unspecified side (principal); J44.9 Chronic obstructive pulmonary disease, unspecified; E78.5 Hyperlipidemia, unspecified; Z79.899 Other long term (current) drug therapy
CPT/HCPCS: 72100; 96127; 99212

== ENCOUNTER → 2024-07-03 14:32 | Outpatient (BNV) | payer MEDICARE, SELFPAY | PROVIDERS: PCP Internal Medicine; Visit Provider Radiology Diagnostic Radiology | DX: M41.35 Thoracogenic scoliosis, thoracolumbar region (principal); M47.816 Spondylosis without myelopathy or radiculopathy, lumbar region | CPT/HCPCS: 72100 ==

== ENCOUNTER 2024-09-01 09:37 | Outpatient (REF) | payer MEDICARE, SELFPAY ==
--- NOTE | ~2024-09-01 | MM_ITS ---
EXAMINATION: DXA BONE DENSITY AXIAL HISTORY: Z78.0 - Asymptomatic menopausal state TECHNIQUE: Akvo Dual energy absorptiometry (DEXA) of the lumbar spine, total left hip, and femoral neck was performed. COMPARISON: Comparison is made with the prior examination dated 08/30/2022. FINDINGS: The bone mineral density of the lumbar spine is 1.163, corresponding to a T-score of 0.0, and a Z-score of 1.4. This is indicative of normal bone mineral density. This represents a BMD change of 9.0% compared to the prior exam. This is statistically significant. The bone mineral density of the left total hip is 0.961, corresponding to a T-score of -0.4, and a Z-score of 1.0. This is indicative of normal bone mineral density. This represents a BMD change of -2.8% compared to the prior exam. This is not statistically significant. The bone mineral density of the left femoral neck is 0.900, corresponding to a T-score of -1.0, and a Z-score of 0.6. This is indicative of normal bone mineral density. This represents a BMD change of 3.6% compared to the prior exam. FRACTURE RISK: The FRAX index suggests a ten year probability of major osteoporotic fracture of 9.3%, and of hip fracture 1.9%. MM/XR DEXA axial skeleton IMPRESSION: Based on bone mineral density, and according to World Health Organization (WHO) criteria, the diagnosis is consistent with normal bone mineral density. All bone density values are in grams per centimeter squared (g/cm2). Statistically, 68% of repeat scans fall within 1 SD (+/- 0.010 g/cm2 for AP spine L1-L4) and 1 SD (+/- 0.012 g/cm2 for femur total) FRAX is a trademark of the [employer]'s [employer] Metabolic Bone Disease, a World Health Organization (WHO) Collaborating Center. Electronically signed by: Damir Persaud MD 09/01/2024 11:07 AM EDT
--- OUTSIDE RECORDS SUMMARY | 2024-09-01 10:37 | XMS_ITS | Clinical Summary ---
Author Organization [employer] Address [address] [place] [address] 7[address] [place] [address] Care Team Providers Care Roughing Mill Operator Name Role Phone Unavailable Primary Care Provider Unavailabl e Immunizations Immunization Administration Dates Next Due Influenza High-dose Quadriva [...] 01/04/2022, 01/20/2021, Additional history exists Influenza Vaccine (Season Ended) 2024 12/13/2022, 12/09/2021, 01/04/2021, Additional history exists Colorectal Cancer [...] patient's age to complete this topic Meningococcal B Vaccine Aged Out No l onger eligible based on patient's age to complete this topic Meningococcal Vaccine Aged Out No kenton jessica eligible based on patient's age to complete this topic RSV under 20 months Aged Out No longe r eligible based on patient's age to complete this topic Rotavirus Vaccines Aged Out No longer eligible based on patient's age to complete this topic Insurance [facility]
== END 2024-09-01 09:38 | disposition home or self-care (01) ==
LOC: HO.MAMMO 09:37
PROVIDERS: PCP Internal Medicine; Visit Provider Internal Medicine
DX: Z13.820 Encounter for screening for osteoporosis (principal); Z78.0 Asymptomatic menopausal state
CPT/HCPCS: 77080

== ENCOUNTER → 2024-09-01 10:00 | Outpatient (BNV) | payer MEDICARE, SELFPAY | PROVIDERS: PCP Internal Medicine; Visit Provider Radiology Diagnostic Radiology | DX: E28.39 Other primary ovarian failure (principal) | CPT/HCPCS: 77080 ==

== ENCOUNTER 2024-09-03 08:24 | Outpatient (AMB) | payer MEDICARE, SELFPAY ==
--- OUTSIDE RECORDS SUMMARY | 2024-09-03 08:31 | XMS_ITS | Clinical Summary ---
Author Organization [employer] Address [address] [place] [address] 7t [place] [address] Care Team Providers Care Reporting Developer Name Role Phone Unavailable Primary Care Provider [...] patient's age to complete this topic Insurance [facility]
[2024-09-03 09:21] VITALS: BP 132/76; PULSE 73; TEMP 36.7; O2SAT 98; BMI 24.5
--- NOTE | 2024-09-03 09:21 | MHC.OFFWIV ---
Intake Vital Signs 09/03/24 09:21 Height 5 ft 7 in Weight 156 lb 6 oz BMI 24.5 BP 132/76 Blood Pressure Location Rt brachial Position Sitting Pulse 73 Pulse Source Pulse Oximeter Temp 98.1 F Temp Source Oral Pulse Oximetry (%) 98 Oxygen Delivery Method Room Air Intake Visit Reasons: EP bite on RT ankle Intake Note: Pt presents to the office today for c/o a bite on her right ankle. Pt states she does believe she has some poison ashwini as well on her right ankle from working outside. Pt states this started 3 days ago. Patient Tobacco Use Status: Current everyday Tobacco user Allergies No Known Allergies Allergy (Verified 09/03/24 09:24) HPI HPI Comments History of Present Illness Details History of Present Illness - The patient is a 74-year-old female presenting with an itchy skin rash following recent exposure to poison ashwini. - Initial symptoms appeared after working in the garden, with itching intensifying particularly at night. - Symptoms include tenderness, changes in skin coloration, and formation of blisters with yellowish discharge. - Attempts to manage with self-care included topical antibiotics, without significant relief. - The rash began early in the week and has gradually worsened in itching severity, with concerns of developing an infection. - She denies fever, chills, pus, bleeding, joint pain, other rashes or lesions. Physical Exam General: Cooperative, healthy appearing, comfortable, no acute distress and well developed Respiratory: Normal respiratory effort and able to speak in complete sentences. Clear to auscultation bilaterally Cardiovascular: Regular rate and rhythm. Normal S1 and S2 Skin: Presence of blister with black skin, raised clear, yellowish serum noted on the right medial ankle. No rashes or lesions noted otherwise. Slight surrounding erythema noted, no induration noted. Neuro: Sensation intact. Extremities: Normal to inspection. FROM of the LE bilaterally. No calf pain. Patient was informed and verbally consented to the use of an ambient scribe for clinic note documentation during this visit. [facility] Medical History Colon cancer screening Normal Pap smear Annual physical exam Surgical History Hx of section Family History Father No problems noted. Mother Stroke Social History Housing: House Patient Tobacco Use Status: Current everyday Tobacco user Tobacco use type: Cigarette Cigarettes Per Day: 4 e-Cigarette/Vaping Use: Never Used service: No Current occupational status: retired Cognitive needs: No Hearing needs: No Vision needs: Yes Review of Systems Const All systems reviewed & are unremarkable except as noted in HPI and below Physical Exam Vital Signs: Last Vital Signs Temp 98.1 F 09/03/24 09:21 Pulse 73 09/03/24 09:21 BP 132/76 09/03/24 09:21 Pulse Ox 98 09/03/24 09:21 Oxygen Delivery Method Room Air 09/03/24 09:21 BMI result Body Mass Index 24.5 Assessment & Plan Assessment & Plan (1) Bug bite: Code(s): W57.XXXA - Bitten or stung by nonvenomous insect and other nonvenomous arthropods, initial encounter Qualifiers: Encounter type: initial encounter Qualified Code(s): W57.XXXA - Bitten or stung by nonvenomous insect and other nonvenomous arthropods, initial encounter Plan Most likely bug bite vs cellulitis vs bullous vs blister Plan - Initiate oral antibiotic therapy to treat the secondary skin infection due to poison ashwini exposure. - Prescribe Bactroban ointment for topical use to decrease infection risk and promote healing. - Doxycycline BID for 10 days. - Instruct the patient to avoid intentional popping of blisters to maintain the skin's barrier function. - Warm compresses and showers are recommended to support comfort and hygiene. - Advise night-time coverage of the rash to prevent irritation and self-injury during sleep. Medications: New doxycycline hyclate 100 mg PO bid 20 tabs 0RF 10 days mupirocin 2% 1 appl topical tid 15 grams 0RF 10 days Coding Level of Care Code Est Pt Level 3 (88721) Diagnoses Bug bite, initial encounter W57.XXXA Encounter type: initial encounter
== END 2024-09-03 09:58 | disposition home or self-care (01) ==
PROVIDERS: PCP Internal Medicine; Visit Provider Physician Assistant Medical
DX: T63.481A Toxic effect of venom of other arthropod, accidental (unintentional), initial encounter (principal)

== ENCOUNTER → 2024-09-03 08:24 | Outpatient (BNVA) | payer MEDICARE, SELFPAY | PROVIDERS: PCP Internal Medicine; Visit Provider Physician Assistant Medical | DX: S90.561A Insect bite (nonvenomous), right ankle, initial encounter (principal); W57.XXXA Bitten or stung by nonvenomous insect and other nonvenomous arthropods, initial encounter | CPT/HCPCS: 99212 ==

== ENCOUNTER 2024-10-27 09:00 | Outpatient (RCR) | payer MEDICARE, SELFPAY ==
--- NOTE | 2024-10-09 09:40 | MHC.PT.EP ---
[facility] [place] Office [place] Office [place] Office [address] Vivek Ventura [address] [phone] F: [phone] F: [phone] F: [phone] F: [phone] Physical Therapy Plan of Care Date of Evaluation: 10/09/24 Date of Surgery: Diagnosis: This is a 74 yo female presenting to skilled PT with a script for back pain. Assessment: This is a 74 yo female presenting to skilled PT with a script for back pain. Pt was recently here earlier this year for the same dx for 5 appointments. She was DC'd in July 2024, PT DC note states Pt has not attended skilled PT in >30 days so therefore to be d/c per policy. She had originally presented with with back pain that began March 2024 with insidious onset. Her pain was primarily in her low L back. The patient denied radiation of pain down her leg and denied numbness or tingling. Today she has continued L side low back pain but this spreads to R now as well. Pain is dull in nature. Continues to deny radiating symptoms. Some days she has no pain. Assessment reveals pain that ranges from up to a 8/10 at the worst. Patient demos decreased lumbar and thoracic ROM, strength of core, back and BLE's, TTP L side lumbar soft tissues and impaired posture with scoliosis, forward head and rounded shoulders. Based on functional limitations, impaired QOL and pain tolerance patient is a good candidate for skilled PT 2x/wk for 4wks. Frequency and Duration: The patient will be seen 2x/wk for 4wks Short Term Goals: Pt will demonstrate improved postural awareness and understanding of core engagement with supine and standing tasks without cues throughout session to improve overall back safety in 2 weeks. Pt will demonstrate centralization of sx in 2 weeks. Pt will continue to reinforce precautions, sitting, standing and ADL modifications with proper body mechanics in 2 wks Electric Power Machine Operator Goals: Pt will demonstrate improved outcome measure by 5 points in 4 weeks for improved functional mobility. Pt will demonstrate ability to bend and lift WNL min to no pain for household tasks in 4 wks. Pt will be I in HEP and compliant in 4wks Treatment Plan: Modalities to reduce pain, spasms and effusion. Manual therapy to restore motion and function. Therapeutic exercise to improve strength and flexibility. Neuromuscular re-education for posture and balance. Therapeutic activities to return to functional activities of daily living. Electronically signed by: Ayaka Izaguirre PT Please sign and return to therapist. Thank you for your referral.
--- NOTE | 2024-11-16 11:10 | MHC.PT.DC ---
[facility] [place] Office [place] Office [place] Office [address] Vivek Ventura [address] [place] [address] [phone] F: [phone] F: [phone] F: [phone] F: [phone] Physical Therapy Discharge Report Diagnosis: This is a 74 yo female presenting to skilled PT with a script for back pain. Date of Surgery: Date of Evaluation: 10/09/24 Date of Discharge: 11/16/24 Treatments to Date: 5 Cancellations to Date: 0 No Shows to Date: 0 Discharge Status: Achieved Goals Improved Function Independent with HEP Patient Elected to Stop Discharge Summary: Patient had 5 PT sessions. Reported in general feeling better, sees MD next month however has improved pain, ROM and is I in HEP. Patient called to cancel her last appointment as she did not feel like it was needed. DC to HEP. Electronically signed by: Ayaka Izaguirre PT Please sign and return to therapist. Thank you for your referral.
== END 2024-11-16 11:10 | disposition home or self-care (01) ==
LOC: HO.PTCHIC 09:00
PROVIDERS: PCP Internal Medicine; Visit Provider Internal Medicine
DX: M54.89 Other dorsalgia (principal)
CPT/HCPCS: 97110; 97140; 97162

== ENCOUNTER 2024-12-08 08:34 | Outpatient (REF) | payer MEDICARE, SELFPAY ==
--- OUTSIDE RECORDS SUMMARY | 2024-12-08 10:15 | XMS_ITS | Clinical Summary ---
Author Organization [email or web address] Address [address] [place] [address] [address] [place] [address] Care Team Providers Care Milliner Helper Name Role Phone Unavailable Primary Care Provider [...] Colonoscopy 1952 Depression Screening 1952 FIT 1952 Lipid Panel 1952 SDOH Screening 1952 Sigmoidoscopy 1952 Alcohol/Substance Use Screening 1964 Tobacco Screening 1964 Hepatitis C Screening 1970 DTaP/Tdap/Td Vaccines (1 - Tdap) 1971 Mammogram 1992 Pneumococcal Vaccine: 50+ Years (1 of 1 - PCV) 2002 Zoster Vaccines (1 of 2) 2002 FOBT 12/14/2023 12/13/2022, 11/24/2019 COVID-19 Vaccine ( season) 2024 01/24/2023, 01/04/2022, 01/20/2021, Additional history exists Influenza Vaccine (#1) 2024 3, 12/09/2021, 01/04/2021, Additional history exists Colorectal [...] patient's age to complete this topic Insurance BS
--- OUTSIDE RECORDS SUMMARY | 2024-12-08 10:15 | XMS_ITS | Clinical Summary ---
Author Organization [facility] [address] [facility] Address [address] [place] [address] Phone Care Team Providers Care Brine Tank Separator Operator Name Role Phone Caroline Allan MD Primary Care Provider Allergies No known active allergies Medications buPROPion XL (WELLBUTRIN XL) 300 mg 24 hr tablet Take 1 tablet (300 mg total) by mouth 1 (one) time each day. 09/13/2024 Active Wixela Inhub 250-50 mcg/dose diskus inhaler 1 puff 2 (two) times a day. 09/22/2024 Active pravastatin (PRAVACHOL) 10 mg tablet Take 1 tablet (10 mg total) by mouth 1 (one) time each day. 08/06/2024 Active Encounters Date Type Department Care Team Description 11/05/2024 9:37 AM EDT - 11/05/2024 11:59 PM EDT Hospital Encounter [facility] CT Scan [address] [place] [phone] Cigarette smoker; Encounter for screening for lung cancer Discharge Disposition: Home or Self Care 11/05/2024 9:15 AM EDT Office Visit Lung Screening Program - [address] [phone] Ruma Mariano PA Encounter for screening for malignant neoplasm of lung in current smoker with 30 pack year history or greater (Primary Dx) 10/06/2024 Telephone Lung Screening Program - [address] [phone] Marilynn Jimenez MA from Last 3 Months Surgical History Surgery Date Site/Laterality Comments SECTION Bilateral Medical History Medical History Date Comments Sciatica COPD (chronic obstructive pulmonary disease) (CM S/HCC V24, CMS/HCC V28) Hyperlipemia Family History Medical History Relation Name Comments Stroke Mother Lung cancer Neg Hx Relation Name Status Comments Father Mother Social History Tobacco Use Types Packs/Day Years Used Date Smoking Tobacco: Every Day Cigarettes 1 56.7 Started: 1966 Smokeless Tobacco: Never Tobacco Cessation:Ready to Q uit: Not Asked; Counseling Given: Not Answered Comments Unknown Sex and Gender Information Value Date Recorded Sex Assigned at Not on file Legal Sex Female 4:44 AM EST Gender Identity Not on file Sexual Orientation Not on file Obstetrics History Plan of Treatment Health Maintenance Due Date Last Done Comments Breast Cancer Screening 1952 DTaP,Tdap,and Td Vaccines (1 - Tdap) 1971 Pneumococcal Vaccine: 50+ Years (1 of 2 - PCV) 1971 Zoster Vaccines (1 of 2) 2002 Depression Screening 03/25/2024 Cholesterol Screening (Lipid Panel) 10/07/2024 Falls Risk Assessment 10/07/2024 Hepatitis C Screening 10/07/2024 Medicare Annual Wellness Visit 10/07/2024 Osteoporosis Screening (Bone Density Screening) 10/07/2024 Social Influencers of Health Screening 10/07/2024 COVID-19 Vaccine ( season) 2024 01/24/2023, 01/04/2022, 01/20/2021, Additional history exists Influenza Vaccine (#1) 2024 4, 12/13/2022, 12/09/2021, Additional history exists Lung Cancer Screening (Low Dose CT) 11/05/2025 11/05/2024 Colorectal Cancer Screening: FIT-DNA (Cologuard) 12/13/2025 12/13/2022, 12/13/2022, 11/24/2019 RSV Immunization Adult Patients (1 - 1-dose 75+ series) 2027 HIB [...] on patient's age to complete this topic MMR Vaccines Aged Out No longer eligi ble based on patient's age to complete this topic Meningococcal ACWY Vaccine Aged Out N o longer eligible based on patient's age to complete this topic Meningococcal B Vaccine Aged Out No l onger eligible based on patient's age to complete this topic RSV Immunization Patients Under 20 months Aged Out No longer eligible based on patient's age to complete this topic Varicella Vaccines Aged Out No longer eligible based on patient's age to complete this topic Procedures Procedure Name Priority Date/Time Associated Diagnosis Comments CT LUNG SCREENING Routine 11/05/2024 9:4 7 AM EDT Cigarette smoker Encounter for screening for lung cancer from Last 3 Months Results * CT Lung Screening (11/05/2024 9:47 AM EDT) Anatomical Region Laterality Modality Chest Computed Tomogra phy 11/10/2024 3:49 PM EDT Impressions 11/10/2024 4:16 PM EDT No suspicious pulmonary nodules. Lung RADS 2-benign. Recommend continued screening with low-dose chest CT in 12 months. -------- FINAL REPORT -------- Dictated By: RAMY WILLS Dictated Date: 11/10/2024 15:49 ET Assigned Physician: RAMY WILLS Reviewed and Electronically Signed By: RAMY WILLS Signed Date: 11/10/2024 16:16 ET Workstation ID: [id number] Transcribed By: Self Edit Transcribed Date: 11/10/2024 15:49 ET Narrative 11/10/2024 4:16 PM EDT PROCEDURE: Chest CT INDICATION: Lung cancer screening, current smoker, 55.8 pack year smoking history TECHNIQUE: Chest CT without contrast. Multi planar reformats were created and interpreted. The examination was performed utilizing dose reduction techniques. Total DLP 114 COMPARISON: No priors available. FINDINGS: LUNGS/PLEURA: Central airways are patent. Calcified granuloma in the right upper lobe. 2 mm nodule in the right middle lobe along minor fissure. No suspicious pulmonary nodules. No pleural effusion or pneumothorax. MEDIASTINUM: Thyroid gland is normal. No mediastinal or hilar lymphadenopathy. Esophagus is normal. Cardiac chambers are normal in size. No pericardial effusion. Moderate coronary cusp lesions. CHEST WALL: No axillary lymphadenopathy or superficial hematoma. UPPER ABDOMEN:The visualized portions of the upper abdomen are unremarkable. BONES: Age indeterminate inferior T12 compression fracture resulting in 25% height loss. No retropulsion of bone towards the spinal canal. Degenerative changes seen throughout the bones. Procedure Note Ramy Wills MD - 11/10/2024 PROCEDURE: Chest CT INDICATION: Lung cancer screening, current smoker, 55.8 pack year smokinghistory TECHNIQUE: Chest CT without contrast. Multi planar reformats were createdand interpreted. The examination was performed utilizing dose reductiontechniques. Total DLP 114 COMPARISON: No priors available. FINDINGS: LUNGS/PLEURA: Central airways are patent. Calcified granuloma in theright upper lobe. 2 mm nodule in the right middle lobe along minorfissure. No suspicious pulmonary nodules. No pleural effusion orpneumothorax. MEDIASTINUM: Thyroid gland is normal. No mediastinal or hilarlymphadenopathy. Esophagus is normal. Cardiac chambers are normal insize. No pericardial effusion. Moderate coronary cusp lesions. CHEST WALL: No axillary lymphadenopathy or superficial hematoma. UPPER ABDOMEN:The visualized portions of the upper abdomen areunremarkable. BONES: Age indeterminate inferior T12 compression fracture resulting in25% height loss. No retropulsion of bone towards the spinal canal.Degenerative changes seen throughout the bones. IMPRESSION: No suspicious pulmonary nodules. Lung RADS 2-benign. Recommend continuedscreening with low-dose chest CT in 12 months. -------- FINAL REPORT -------- Dictated By: RAMY WILLS Dictated Date: 11/10/2024 15:49 ET Assigned Physician: RAMY WILLS Reviewed and Electronically Signed By: RAMY WILLS Signed Date: 11/10/2024 16:16 ET Workstation ID: [id number] Transcribed By: Self Edit Transcribed Date: 11/10/2024 15:49 ET us Armida Kauffman MD IMG CT PROCEDURES Final Result from Last 3 Months Insurance [place] - [place] Care Teams Brine Tank Separator Operator Relationship Specialty Start Date End Date Caroline Allan MD [address] [place] [address] PCP - General Internal Medicine 10/06/24
[2024-12-08 10:45] LABS: MANUAL DIFF FLAG NO
[2024-12-08 11:14] LABS: Hematocrit 39.5 % (37.0-47.0); Hemoglobin 13.2 g/dl (12.0-16.0); Imm Gran Abs Auto 0.02 X10*3/uL (0.00-0.03); Imm Gran Pct Auto 0.4 % (0.0-0.4); Lymphocytes Absolute Auto 2.1 X10*3/uL (1.2-4.9); Mean Corpuscular HGB Conc 33.4 g/dl (31.0-35.0); Mean Corpuscular Hemoglobin 31.7 pg (27.0-33.0); Mean Corpuscular Volume 94.7 fL (80.0-98.0); NRBC Abs Auto 0.000 X10*3/uL (0.0-0.012); NRBC Pct Auto 0.0 /100WBC (0.0-0.2); Platelet Count 236 X10*3/uL (160-400); Red Blood Count 4.17 X10*6/uL (4.20-5.50); White Blood Count 5.2 X10*3/uL (4.8-10.8)
[2024-12-08 12:16] LABS: Alanine Aminotransferase 15 U/L (0-31); Albumin Level 4.4 g/dL (3.5-5.0); Alkaline Phosphatase 64 U/L (39-117); Anion Gap 13 (12-20); Aspartate Amino Transferase 26 U/L (5-31); Blood Urea Nitrogen 16 mg/dL (9-16); Calcium 9.3 mg/dL (8.4-10.2); Carbon Dioxide 27 mmol/L (22-29); Chloride 106 mmol/L (96-108); Cholesterol 191 mg/dL (<200); Estimated Glomerular Filt Rate > 60; HDL Cholesterol 59 mg/dL (>40); Potassium 3.9 mmol/L (3.3-5.1); Sodium 142 mmol/L (135-145); Total Protein 7.0 g/dL (6.5-8.0); Triglycerides 116 mg/dL (<150)
== END 2024-12-08 08:35 | disposition home or self-care (01) ==
LOC: HO.CHCLDS 08:34
PROVIDERS: Visit Provider Internal Medicine
DX: M17.11 Unilateral primary osteoarthritis, right knee (principal); E55.9 Vitamin D deficiency, unspecified; E78.5 Hyperlipidemia, unspecified; Z78.0 Asymptomatic menopausal state
CPT/HCPCS: 36415; 80053; 80061; 82306; 84443; 85025

== ENCOUNTER 2024-12-16 09:59 | Outpatient (AMB) | payer MEDICARE, SELFPAY ==
[2024-12-16 10:29] VITALS: BP 118/70; PULSE 64; TEMP 36.7; O2SAT 98; BMI 24.9
--- NOTE | 2024-12-16 10:29 | A.OFFPC_ITS ---
Vital Signs 12/16/24 10:29 Height 5 ft 7 in Weight 159 lb BMI 24.9 BP 118/70 Blood Pressure Location Lt brachial Position Sitting Pulse 64 Pulse Source Pulse Oximeter Temp 98.1 F Temp Source Oral Pulse Oximetry (%) 98 Oxygen Delivery Method Room Air Intake Visit Reasons: PE Intake Note: Pt is here today for PE. Allergies No Known Allergies Allergy (Verified 12/16/24 10:38) Medication List - Last Reconciled 12/16/24 by Caroline Allan MD baclofen 10 mg PO BEDTIME PRN bupropion HCl XL 300 mg PO DAILY pravastatin 10 mg PO DAILY Wixela Inhub 250-50 mcg/dose (fluticasone propion-salmeterol) 1 inh inhalation BID NS Tobacco use date assessed: 12/16/24 Fall risk assessment: No Falls in past year Last assessed Fall Risk: 12/16/24 Dental Screening Dental Screen Date: 04/20/24 HPI PE HPI Details Pt presents for PE. COPD is better controlled on Wixela but patient is still reports episodes of productive cough with clear sputum. She denies PND orthopnea but reports dyspnea on exertion no chest pain.. [facility] Medical History (Updated 12/16/24 @ 19:47 by Caroline Allan MD) Hyperlipemia Anxiety COPD (chronic obstructive pulmonary disease) Colon cancer screening Normal Pap smear Annual physical exam Surgical History Hx of section Family History Father No problems noted. Mother Stroke Social History Housing: House Patient Tobacco Use Status: Current someday Tobacco user Tobacco use type: Cigarette Cigarettes Per Day: 5 e-Cigarette/Vaping Use: Never Used service: No Current occupational status: retired Cognitive needs: No Hearing needs: No Vision needs: Yes Questionnaire PHQ-9 Over the last 2 weeks, how often have you been bothered by any of the following problems? 1. Little interest or pleasure in doing things: not at all 2. Feeling down, depressed, or hopeless: not at all 3. Trouble falling or staying asleep, or sleeping too much: several days 4. Feeling tired or having little energy: several days 5. Poor appetite or overeating: not at all 6. Feeling bad about yourself - or that you are a failure or have let yourself or your family down: not at all 7. Trouble concentrating on things, such as reading the newspaper or watching television: not at all 8. Moving or speaking so slowly that other people could have noticed. Or the opposite - being so fidgety or restless that you have been moving around a lot more than usual: not at all 9. Thoughts that you would be better off or of hurting yourself in some way: not at all Total score: 2 Depression Screening Interpretation: Negative Depression Screening Done: Yes Source: Developed by Drs. Damir Luna, Debra Valdes, Lexx Alanis and colleagues, with an educational aide from [employer]. Thrive Questionnaire Date Thrive assessed: 04/17/24 I am a: Patient What is your living situation today?: I have a steady place to live Within the past 12 months, did the food you bought not last and you didn't have the money to get more?: Often true Within the past 12 months, did you worry whether your food would run out before you got money to buy more?: I choose not to answer this question Do you have trouble paying for medicines?: I choose not to answer this question Do you have trouble getting transportation to medical appointments?: No Do you have trouble paying your heating and electricity bill?: I choose not to answer this question Do you have trouble taking care of your child, family member or friend?: I choose not to answer this question Do you have trouble with day-to-day activities such as bathing, preparing meals, shopping, managing finances, etc.?: No Are you currently unemployed and looking for a job?: I choose not to answer this question Are you interested in more education?: No Currently or been in a relationship where the following occur: I choose not to answer THRIVE Score: 1 BRIGITTE-7 AMB Questionnaire BRIGITTE-7 Date BRIGITTE - 7 assessed: 04/20/24 Feeling nervous, anxious, or on edge: 0 = Not at all Not being able to stop or control worryin = Not at all Worrying too much about different things: 0 = Not at all Trouble relaxin = Not at all Being so restless that it is hard to sit still: 0 = Not at all Becoming easily annoyed or irritable: 0 = Not at all Feeling afraid as if something awful might happen: 0 = Not at all Total BRIGITTE-7 score (0-4 normal; 5-9 mild; 10-14 moderate; 15-21 severe): 0 Source: Developed by Drs. Damir Luna, Debra Valdes, Lexx Alanis and colleagues, with an educational aide from [employer]. Review of Systems Const All systems reviewed & are unremarkable except as noted in HPI and below Eyes Reports no additional complaints ENT Reports no additional complaints Card Reports no additional complaints Resp Reports no additional complaints GI Reports no additional complaints Reports no additional complaints Physical exam (Primary Care) Vital Signs: Last Vital Signs Temp 98.1 F 12/16/24 10:29 Pulse 64 12/16/24 10:29 BP 118/70 12/16/24 10:29 Pulse Ox 98 12/16/24 10:29 Oxygen Delivery Method Room Air 12/16/24 10:29 BMI result Body Mass Index 24.9 Tobacco/Smoking Status: Tobacco use Status Tobacco use date assessed 12/16/24 12/16/24 10:39 Patient Tobacco Use Status Current someday Tobacco 12/16/24 10:46 Tobacco use type Cigarette 12/16/24 10:31 e-Cigarette/Vaping Use Never Used 12/16/24 10:31 PHQ-9: PHQ-9 Score PHQ-9: Total score 2 12/16/24 11:01 Depression Screening Interpretation: Negative Thrive Assessment: Date of Thrive Assessment Date Thrive assessed 04/17/24 12/16/24 10:31 Currently or been in a relationship where the following occur: I choose not to answer Const General: no acute distress HENMT Head: Yes normal to inspection Throat: Yes posterior oropharynx normal Eyes General: appearance normal, both eyes and all related structures Resp Effort & Inspection: normal respiratory effort Auscultation: clear to auscultation bilaterally Cardio Rhythm: regular rhythm Heart sounds: S1 normal heart sound present and S2 normal heart sound present GI Inspection: Yes normal to inspection Palpation (GI): Soft to palpation Percussion: Yes normal to percussion Auscultation: normal bowel sounds Coding Level of Care Code Est Pt Prev Care >65y(99261) Diagnoses COPD (chronic obstructive pulmonary disease) J44.9 Hyperlipemia E78.5 Anxiety F41.9 Annual physical exam Z00.00 Assessment & Plan Assessment & Plan (1) COPD (chronic obstructive pulmonary disease): Comment: mild emphysema on CT 02/2024 Code(s): J44.9 - Chronic obstructive pulmonary disease, unspecified Category: Medical Plan: Add Incruse to Wixela, patient could not afford Trelegy (2) Hyperlipemia: Code(s): E78.5 - Hyperlipidemia, unspecified Category: Medical Plan: Continue statin (3) Anxiety: Code(s): F41.9 - Anxiety disorder, unspecified Category: Medical Plan: Continue bupropion (4) Annual physical exam: Comment: Mammogram at [facility] annually. Patient declined colonoscopy. Negative Cologuard 2022 Code(s): Z00.00 - Encounter for general adult medical examination without abnormal findings Category: Medical Plan: Well-balanced diet regular physical activity discussed with the patient. Medications: New Incruse Ellipta 62.5 mcg/actuation (umeclidinium) 1 inh inhalation DAILY 30 ea 4RF NS baclofen 10 mg PO BEDTIME PRN 30 tabs 0RF muscle spasm
--- OUTSIDE RECORDS SUMMARY | 2024-12-16 12:12 | XMS_ITS | Clinical Summary ---
Author Organization [facility] 299 [facility] Address [address] [place] [address] Phone Care Team Providers Care Coal And Ash Supervisor Name Role Phone Caroline Allan MD Primary Care Provider [phone] Allergies No known active allergies Medications buPROPion [...] - 11/05/2024 11:59 PM EDT Hospital Encounter [facility] CT Scan [address] [place] [phone] Cigarette smoker; Encounter for screening for lung cancer Discharge Disposition: Home or Self Care 11/05/2024 9:15 AM EDT Office Visit Lung Screening Program - [address] [phone] Rmua Mariano PA Encounter for screening for malignant neoplasm of lung in current smoker with 30 pack year history or greater (Primary Dx) 10/06/2024 Telephone Lung Screening Program - [address] [phone] Marilynn Jimenez MA from Last 3 Months [...] Signed Date: 11/10/2024 16:16 ET Workstation ID: [id number] Transcribed By: Self Edit Transcribed Date: 11/10/2024 [...] Signed Date: 11/10/2024 16:16 ET Workstation ID: [id number] Transcribed By: Self Edit Transcribed Date: 11/10/2024 15:49 ET us Armida Kauffman MD IMG CT PROCEDURES Final Result from Last 3 Months Insurance BL[place] - [place]IC[place] AD[place] Care Teams Coal And Ash Supervisor Relationship Specialty Start Date End Date Caroline Allan MD [address] [place] [address] PCP - General Internal Medicine 10/06/24
--- OUTSIDE RECORDS SUMMARY | 2024-12-16 12:13 | XMS_ITS | Clinical Summary ---
Author Organization [facility] Address [address] [place] [address] [address] [place] [address] Care Team Providers Care Banana Carrier Name Role Phone Unavailable Primary Care Provider [...]
== END 2024-12-16 11:19 | disposition home or self-care (01) ==
LOC: HO.HMCC 09:59
PROVIDERS: PCP Internal Medicine; Visit Provider Internal Medicine
DX: Z00.00 Encounter for general adult medical examination without abnormal findings (principal); J44.9 Chronic obstructive pulmonary disease, unspecified; E78.5 Hyperlipidemia, unspecified; F41.9 Anxiety disorder, unspecified

== ENCOUNTER → 2024-12-16 09:59 | Outpatient (BNVA) | payer MEDICARE, SELFPAY | PROVIDERS: PCP Internal Medicine; Visit Provider Internal Medicine | DX: Z00.00 Encounter for general adult medical examination without abnormal findings (principal); J44.9 Chronic obstructive pulmonary disease, unspecified; E78.5 Hyperlipidemia, unspecified; F41.9 Anxiety disorder, unspecified; Z79.899 Other long term (current) drug therapy; Z13.31 Encounter for screening for depression | CPT/HCPCS: 96127; 99397 ==

== ENCOUNTER 2025-01-21 10:23 | Outpatient (AMB) | payer MEDICARE, SELFPAY ==
--- NOTE | 2025-01-21 11:04 | A.OFFVIS_ITS ---
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 No complaints. Last Pap/HPV was many years ago Last Mammogram was in 01/16 was negative according to the patient at [facility], no records available Last Colonoscopy was 3 years ago with the recommendation according to the patient is to repeat in 10 years, no records available Last DEXA scan was done in 09/16, the patient is in the low risk category [facility] Medical History Hyperlipemia Anxiety COPD (chronic obstructive pulmonary disease) Colon cancer screening Normal Pap smear Annual physical exam Surgical History Hx of section Family History Father No problems noted. Mother Stroke Social History Housing: House Patient Tobacco Use Status: Current someday Tobacco user Tobacco use type: Cigarette Cigarettes Per Day: 5 e-Cigarette/Vaping Use: Never Used Patient : No service: No Current occupational status: retired Cognitive needs: No Hearing needs: No Vision needs: Yes Review of Systems Const All systems reviewed & are unremarkable except as noted in HPI and below Card Reports as per HPI Resp Reports as per HPI GI Reports as per HPI and Reports no additional complaints Reports as per HPI Physical Exam Vital Signs: Last Vital Signs BP 116/72 01/21/25 11:08 BMI result Body Mass Index 24.7 Const General: cooperative, healthy appearing and comfortable Chest Chest palpation & inspection: normal inspection of the chest and normal palpation of entire chest wall Breast/axilla inspection: normal inspection of the breasts and normal inspection of the axillae Breast/axilla palpation: normal palpation of the breasts, normal palpation of the axillae and no axillary lymphadenopathy Resp Effort & Inspection: normal respiratory effort Auscultation: clear to auscultation bilaterally Percussion: percussion normal Cardio Palpation: normal PMI Rate: regular rate Rhythm: regular rhythm Heart sounds: no murmurs and no rubs Peripheral pulses: Peripheral pulses 2+ throughout GI Inspection: Yes normal to inspection Palpation (GI): Soft to palpation, nontender, no guarding, not rigid and No hepatosplenomegaly present Percussion: Yes normal to percussion Auscultation: normal bowel sounds Rectal Exam - Female: deferred General: Yes bladder normal to palpation External Female Exam: No lesion Speculum Exam - Vagina: normal appearance of the vagina, normal palpation, normal vaginal discharge and not erythematous Speculum Exam - Cervix: normal appearance of the cervix and normal palpation Bimanual exam- vagina & uterus: normal bimanual exam, normal palpation, uterine size normal, bladder normal to palpation, consistency normal and normal palpation Bimanual Exam- Adnexa, other: normal adnexae, no masses and no tenderness Assessment & Plan Assessment & Plan (1) Well woman exam: Code(s): Z01.419 - Encounter for gynecological examination (general) (routine) without abnormal findings Category: Medical Plan: Co testing done since there are no available Co testing results on record Counseled the patient about the recommended dietary allowance of 1200 mg of Calcium & 800 IU of vitamin D. Instructions given the patient to schedule next screening Mammogram in 01/17 The patient was instructed to perform monthly self-breast exams and to schedule a 2 week DEXA scan follow-up appointment and an annual exam in a year; All questions answered and the patient verbalized understanding. Coding Level of Care Code Est Pt Prev Care >65y(87476) Diagnoses Well woman exam Z01.419
[2025-01-21 11:08] VITALS: BP 116/72; BMI 24.7
--- OUTSIDE RECORDS SUMMARY | 2025-01-21 12:34 | XMS_ITS | Clinical Summary ---
Author Organization [facility] 299 [facility] Address [address] [place] [address] Phone Care Team Providers Care Geography Head Name Role Phone Caroline Allan MD Primary Care Provider [phone] Allergies No known active allergies Medications buPROPion [...] - 11/05/2024 11:59 PM EDT Hospital Encounter [facility] CT Scan [address] [place] [phone] Cigarette smoker; Encounter for screening for lung cancer Discharge Disposition: Home or Self Care 11/05/2024 9:15 AM EDT Office Visit Lung Screening Program - [address] [phone] Ruma Mariano PA Encounter for screening for malignant neoplasm of lung in current smoker with 30 pack year history or greater (Primary Dx) from Last 3 Months Surgical History Surgery [...] Date Smoking Tobacco: Every Day Cigarettes 1 56.8 Started: 1966 Smokeless Tobacco: Never Tobacco Cessation:Ready [...] Additional history exists Influenza Vaccine (#1) 2024 , 12/13/2022, 12/09/2021, Additional history exists Lung Cancer [...] Signed Date: 11/10/2024 16:16 ET Workstation ID: [id number] Transcribed By: Self Edit Transcribed Date: 11/10/2024 [...] Signed Date: 11/10/2024 16:16 ET Workstation ID: [id number] Transcribed By: Self Edit Transcribed Date: 11/10/2024 15:49 ET us Armida Kauffman MD IMG CT PROCEDURES Final Result from Last 3 Months Insurance BL[place] - [place]ICARE ADVANT[place] Care Teams Geography Head Relationship Specialty Start Date End Date Caroline Allan MD [address] [place] [phone] PCP - General Internal Medicine 10/06/24
--- OUTSIDE RECORDS SUMMARY | 2025-01-21 12:34 | XMS_ITS | Clinical Summary ---
Author Organization [facility] [employer] Address [address] [place] [address] [address] [place] [address] Care Team Providers Care Dye Winch Operator Name Role Phone Unavailable Primary Care [...]
== END 2025-01-21 11:23 | disposition home or self-care (01) ==
LOC: HO.HWS 10:24
PROVIDERS: PCP Internal Medicine; Visit Provider Obstetrics & Gynecology
DX: Z01.419 Encounter for gynecological examination (general) (routine) without abnormal findings (principal)
CPT/HCPCS: 99397; 99459

== ENCOUNTER 2025-01-21 10:23 | Outpatient (REF) | payer MEDICARE, SELFPAY | END 2025-01-21 10:24 | disposition home or self-care (01) | LOC: HO.LNP 10:23 | PROVIDERS: PCP Internal Medicine; Visit Provider Obstetrics & Gynecology | DX: Z01.419 Encounter for gynecological examination (general) (routine) without abnormal findings (principal); Z11.51 Encounter for screening for human papillomavirus (HPV) | CPT/HCPCS: 87626; 88175; 99397 ==

== ENCOUNTER 2025-03-11 10:50 | Outpatient (AMB) | payer MEDICARE, SELFPAY ==
[2025-03-11 11:34] VITALS: BP 138/80; PULSE 60; O2SAT 99; BMI 25.1
--- NOTE | 2025-03-11 11:34 | MHC.OFFWIV ---
Intake Vital Signs 03/11/25 11:34 Height 5 ft 7 in Weight 160 lb BMI 25.1 BP 138/80 Blood Pressure Location Lt brachial Position Sitting Pulse 60 Pulse Source Pulse Oximeter Pulse Oximetry (%) 99 Oxygen Delivery Method Room Air Intake Visit Reasons: EP Thrush?? Intake Note: Patient presents c/o ? thrush Patient Tobacco Use Status: Current someday Tobacco user Allergies No Known Allergies Allergy (Verified 03/11/25 11:37) HPI HPI Comments History of Present Illness Details History of Present Illness - The patient is a 74-year-old female presenting for evaluation of oral symptoms. - She reports a bad taste in her mouth, which was previously thick and burning, and she observed a large white patch internally. - She has associated gum discomfort and mild pain on swallowing but denies a significant sore throat or headache. - The patient states this is not the first time she has experienced these symptoms. - She uses an inhaler, which is associated with her symptoms. - She denies any fever and reports she is eating well. Physical Exam General: Cooperative, healthy appearing, comfortable, no acute distress and well developed Orientation: Patient oriented x3 Limitations: No limitations Head: Normal to inspection Ears: Hearing grossly normal bilaterally Mouth: Thick white coating noted on the tongue. Small lesion noted on the right lateral tongue. Uvula is midline. Pharynx is pink with no exudates noted. Neck: Normal visual inspection and Yes full ROM. No lymphadenopathy noted. Respiratory: Normal respiratory effort and able to speak in complete sentences. Clear to auscultation bilaterally. No w/r/r noted. Cardiovascular: Regular rate and rhythm. Normal S1 and S2. No m/r/g noted. Patient was informed and verbally consented to the use of an ambient scribe for clinic note documentation during this visit. [facility] Medical History Hyperlipemia Anxiety COPD (chronic obstructive pulmonary disease) Colon cancer screening Normal Pap smear Annual physical exam Surgical History Hx of section Family History Father No problems noted. Mother Stroke Social History Housing: House Patient Tobacco Use Status: Current someday Tobacco user Tobacco use type: Cigarette Cigarettes Per Day: 5 e-Cigarette/Vaping Use: Never Used service: No Current occupational status: retired Cognitive needs: No Hearing needs: No Vision needs: Yes Review of Systems Const All systems reviewed & are unremarkable except as noted in HPI and below Physical Exam Vital Signs: Last Vital Signs Pulse 60 03/11/25 11:34 BP 138/80 03/11/25 11:34 Pulse Ox 99 03/11/25 11:34 Oxygen Delivery Method Room Air 03/11/25 11:34 BMI result Body Mass Index 25.1 Assessment & Plan Assessment & Plan (1) Thrush: Code(s): B37.0 - Candidal stomatitis Plan Most likely Oral Candidiasis from her inhaler plan - The patient was diagnosed with oral candidiasis, likely secondary to inhaler use. - Prescribed fluconazole, with instructions to take one pill now and a second pill in three days. - Prescribed an oral pouch to be used three times a day to help clean the mouth. - Advised to rinse her mouth frequently, particularly after eating and using her inhaler. - Recommended keeping the inhaler mouthpiece clean. - The use of warm salt water rinses was approved. - Instructed to monitor for fever. Medications: New fluconazole may repeat second dose 72 hrs after first dose if symptoms persist 150 mg PO Q3D 2 tabs 0RF clotrimazole 10 mg mucous membrane TID 21 tabs 0RF 7 days Coding Level of Care Code Est Pt Level 3 (88655) Diagnoses Thrush B37.0
--- OUTSIDE RECORDS SUMMARY | 2025-03-11 13:54 | XMS_ITS | Clinical Summary ---
Author Organization [facility] Address [address] [place] [address] [address] [place] [address] Care Team Providers Care Barber Shop Operator Name Role Phone Unavailable Primary Care [...]
--- OUTSIDE RECORDS SUMMARY | 2025-03-11 13:54 | XMS_ITS | Patient Health Record ---
Author Organization [facility] Address [address] [place] [address] Care Team Providers Care Tool Turret Lathe Set Up Operator Name Role Phone Bridger CE Primary Care Provider Allergies Allergen (clinical drug ingredient) Drug/Non Drug Allergy documented on EMR Reaction Allergy Type Onset Date Status paroxetine Paxil fatigue and tremulous Drug Allergy Active sertraline Zoloft diarrhea Drug Allergy Active Reason For Referral No Information Medications Medication SIG (Take, Route, Frequency, Duration) Notes Start Date End Date Status ZyrTEC Allergy 10 MG Tablet 1 tab(s) orally daily as needed Active Multivitamin - Tablet 1 cap(s) orally on ce a day Active Vitamin D3 25 MCG (1000 UT) Capsule 1 cap(s) orally once a day Active buPROPion HCl ER (XL) 150 MG Tablet Extended Release 24 Hour 2 tab(s) orally daily; Duration: 90 DAY(S) Active traZODone HCl 50 MG Tablet 1 tab(s) orally daily at bedtime; Duration: 30 day(s) 10/03/2018 Not-Taking Immunizations Vaccine Route Administration Date Status Comme nts Zostavax (Shingles) SC Subcutaneous 05/05/2013 Administere d Tdap (Adacel)11-64,State Supplied IM Intramuscular 09/12/2006 Administered Tdap (Adacel) IM Intramuscular 06/26/2016 Administered Pneumococcal Prevnar 13 IM Intramuscular 06/28/2017 Admini stered Pneumococcal (PPV23, adult) IM Intramuscular 12/14/2011 Administered Influenza, Fluzone QUAD, 3+ yrs, IM Intramuscular 01/02/2017 Administered Influenza, Fluzone HD 65+ IM Intramuscular 12/27/2017 Admi nistered Influenza, Fluzone HD 65+ IM Intramuscular 01/09/2019 Admi nistered Influenza, Fluvirin multi dose Unknown 01/05/2015 Administered Influenza, Fluvirin multi dose Unknown 12/30/2015 Administered Influenza IM Intramuscular 12/06/2008 Administered Influenza IM Intramuscular 12/08/2009 Administered Influenza IM Intramuscular 12/12/2010 Administered Influenza IM Intramuscular 12/14/2011 Administered FLU- FLUVIRIN, PRE-FILLED SYRINGE 0.5 ml Unknown 12/07/2012 Administered FLU- FLUVIRIN, PRE-FILLED SYRINGE 0.5 ml Unknown 12/18/2013 Administered Pneumococcal, PPV 23 IM Intramuscular 07/02/2018 Administe red Social History Tobacco Use: Social History Observation Description Date Details (start date - stop date) Current Smoker NA - NA Social History Drug/Alcohol: Social Info Question Answer Notes Alcohol Screen Did you have a drink containing alcohol in the past year? No Points 0 Interpretation Negative Tobacco Use: Social Info Question Answer Notes Smoking Are you a: current smoker How often do you smoke Cigarettes? some days, but not every day How many cigarettes a day do you smoke? 5 or less Additional Details Category Social Info Options Details General Occupation: Retired Retired asbestos exposure: no no alcohol use: no drug use: no no Hobbies/Exercise habits: none Coffee/Tea/Soda: yes Coffee, Soda Marital Status experience no no Living with (d.08/10/18))teagan and in [place] and he has end stage COPD and memory loss Pets none none smokers in household no Drugs no no Section Notes: new baby girl grandchild--Michele john. 2 grandkids now! Rosalinda and Ky. 2 grandkids now! Rosalinda and Ky. 2 grandkids now! Rosalinda and Ky. off and on; has quit in the past for 8 years, keeps coming and going. Planning to stop again.Tried the patch and got sick. May want wellbutrin in the future. off and on; has quit in the past for 8 years, keeps coming and going. Planning to stop again.Tried the patch and got sick. May want wellbutrin in the future. 2 grandkids now! Rosalinda and Ky. 2 grandkids now! Rosalinda and Ky. 2 grandkids now! Rosalinda and Ky. 2 grandkids now! Rosalinda and Ky. 2 grandkids now! Rosalinda and Ky. off and on; has quit in the past for 8 years, keeps coming and going. Planning to stop again.Tried the patch and got sick. May want wellbutrin in the future. 2 grandkids now! Rosalinda and Ky. 2 grandkids now! Rosalinda and Ky. 2 grandkids now! Rosalinda and Ky. 2 grandkids now! Rosalinda and Ky. new baby girl grandchild--Ma dison. 2 grandkids now! Rosalinda and Ky. new baby girl grandchild--Ma dison. new baby girl grandchild--Ma dison. 2 grandkids now! Rosalinda and Ky. off and on; has quit in the past for 8 years, keeps coming and going. Planning to stop again.Tried the patch and got sick. May want wellbutrin in the future. Problems Problem Type SNOMED Code ICD Code Onset Dates Problem Status W/U Status Risk Notes Problem Tinnitus of left ear (0254018275742) Tinnitus of left ear (H93.12) Active confirmed Problem Seasonal allergy (291889711) Seasonal allergies (J30.2) Active confirmed Problem Primary insomnia (0405130) Primary insomnia (F51.01) Active confirmed Problem Vertigo (368982909) Vertigo (R42) Active confir med Problem Reactive depression (situational) (95613682) Situational depression (F43.21) Active confirmed Problem Osteoarthritis of knee (960197714) Primary osteoarthritis of left knee (M17.12) Active confirmed Problem Osteochondropathy (19022216) Bone disorder (M89.9) Active confirmed Problem Pure hypercholesterolemia (505902568) Pure hypercholesterolemia (E78.00) Active confirmed Plan Of Treatment Future Test Test Name Order Date Stool OCCULT BLOOD X 3( Hemocult ICT iFO BT) 06/26/2016 Stool OCCULT BLOOD X 3( Hemocult ICT iFO BT) 06/28/2017 Colonoscopy w/propofol anesthesia 2017 Stool OCCULT BLOOD X 3( Hemocult ICT iFO BT) 07/02/2018 Insurance Providers Payer Name Payer Address Payer Phone Subscriber Number Group Number Insured Name Patient Relationship to Insured Coverage Start Date Coverage End Date [employer] [place] MED[employer] [employer]VANTAGE [address] [place] [address] [id number] MERLENE CR Self - patient is the insured Medical (General) History Medical History History ICD Code Colonoscopy: 04/11/05 Normal Allergic Rhinitis Tobacco Abuse- quit 2012 and again 7 depression with anxiety Surgical History Surgery Date(Month/Year) tonsillectomy /BTL 1982 Hospitalization History Reason Date(Month/Year) surgeries alone
--- OUTSIDE RECORDS SUMMARY | 2025-03-11 13:54 | XMS_ITS | Clinical Summary ---
Author Organization [facility] [address] [facility] Address [address] [place] [address] Phone Care Team Providers Care Meteorology Instructor Name Role Phone Caroline Allan MD Primary Care Provider [phone] Allergies No known active allergies Medications buPROPion [...] 1 (one) time each day. 08/06/2024 Active Surgical History Surgery Date Site/Laterality Comments SECTION Bilateral Medical History Medical History Date Comments Sciatica COPD (chronic obstructive pulmonary disease) (CM S/HCC V24, CMS/HCC V28) Hyperlipemia Family History Medical History Relation Name Comments Stroke Mother Lung cancer Neg Hx Relation Name Status Comments Father Mother Social History Tobacco Use Types Packs/Day Years Used Date Smoking Tobacco: Every Day Cigarettes 1 57 Started: 1966 Smokeless Tobacco: Never Tobacco Cessation:Ready to Q uit: Not Asked; Counseling Given: Not Answered Comments Unknown Sex and Gender Information Value Date Recorded Sex Assigned at Not on file Legal Sex Female 4:44 AM EST Gender Identity Not on file Sexual Orientation Not on file Plan of Treatment Health Maintenance Due Date [...] for lung cancer from Last 3 Months or Most Recently Relevant to Health Maintenance Results * CT Lung Screening (11/05/2024 9:47 [...] Signed Date: 11/10/2024 16:16 ET Workstation ID: [id number] Transcribed By: Self Edit Transcribed Date: 11/10/2024 [...] Signed Date: 11/10/2024 16:16 ET Workstation ID: [id number] Transcribed By: Self Edit Transcribed Date: 11/10/2024 15:49 ET Armida Kauffman MD IMG CT PROCEDURES Final Result from Last 3 Months or Most Recently Relevant to Health Maintenance Insurance [employer] [place]IC[place] AD[place]AGE Care Teams Meteorology Instructor Relationship Specialty Start Date End Date Caroline Allan MD [address] [place] [address] PCP - General Internal Medicine 10/06/24
== END 2025-03-11 12:26 | disposition home or self-care (01) ==
PROVIDERS: PCP Internal Medicine; Visit Provider Physician Assistant Medical
DX: B37.0 Candidal stomatitis (principal)

== ENCOUNTER → 2025-03-11 10:50 | Outpatient (BNVA) | payer MEDICARE, SELFPAY | PROVIDERS: PCP Internal Medicine; Visit Provider Physician Assistant Medical | DX: B37.0 Candidal stomatitis (principal) | CPT/HCPCS: 99212 ==